=== PATIENT | male | born 1940 | race Caucasian/White ===

== ENCOUNTER 2016-09-25 14:57 | Inpatient (IN) ==
--- NOTE | 2016-09-25 15:57 | Emergency Department Note ---
Disposition Clinical Impression: Atrial fibrillation with rapid ventricular response, Hypokalemia Disposition: Admitted As Inpatient Condition: Fair Referrals: Doc Drake DO [Primary Care Provider] - Forms: ED Satisfaction Letter Time of Disposition: 17:55 Arrhythmia/Palpitations HPI - General Chief Complaint: ED Arrhythmia/Palpitations Stated Complaint: a. fib with RVR from IR Time Seen by Provider: 09/25/16 15:38 Source: patient Mode of arrival: private vehicle Limitations: no limitations Nursing Notes Reviewed: Yes Vital Signs Reviewed: Yes - History of Present Illness HPI Narrative: Patient was sent over from interventional radiology after he had a lung biopsy this afternoon. His heart rate was high and remained high and that concerned his INR staff and so they sent him over here for evaluation. Patient states he is completely asymptomatic with regards to his heart rate. He does not feel his heart racing and he does not feel any new symptoms today. Pt Subjective Complaint: rapid heart beat, atrial fibrillation Onset (ago): week(s) Duration: constant Severity: moderate (Heart rate has been up and down) Arrhythmia History: atrial fibrillation (Patient started having atrial fibrillation back in the beginning of August when he was hospitalized in order to get a lung biopsy), on anti-coagulants (Patient was started on Eliquis in August) Associated symptoms: Reports: denies other symptoms (Patient states he is having no symptoms at all. States he would not have come to the emergency department had a not told him he needed to come.) - Related Data Home Medications Medication Instructions Recorded Confirmed Albuterol Sulfate [Ventolin Hfa] 2 puff IH Q4H PRN 08/27/16 09/25/16 Alendronate Sodium [Fosamax] 70 mg PO AVILEZ 08/27/16 09/25/16 Cholecalciferol (Vitamin D3) 1,000 unit PO DAILY 08/27/16 09/25/16 [Vitamin D] Metoprolol Tartrate [Lopressor] 100 mg PO BID 08/27/16 09/14/16 Apixaban [Eliquis] 5 mg PO BID 09/14/16 09/25/16 Diltiazem HCl [Cardizem] 60 mg PO Q6H 09/14/16 09/25/16 Furosemide [Lasix] 40 mg PO DAILY 09/14/16 09/25/16 Albuterol Neb [Proventil Neb] 2.5 mg IH 8XD PRN 09/25/16 09/25/16 Losartan/Hydrochlorothiazide 1 each PO DAILY 09/25/16 [Hyzaar 100-25 Tablet] Allergies Allergy/AdvReac Type Severity Reaction Status Date / Time No Known Allergies Allergy Verified 08/27/16 10:25 All systems ED: reviewed and negative except as stated. Constitutional: Denies: fever, chills ENT ED: Denies: ear pain, throat pain, congestion Cardiovascular: Denies: chest pain, palpitations Respiratory: Reports: cough (Patient has cough but is chronic and it is unchanged at all over the past few days.). Denies: dyspnea Gastrointestinal: Denies: abdominal pain, nausea, vomiting Neurological: Denies: headache, weakness Hematological/Lymphatic: Denies: easy bleeding, easy bruising Past Medical History - Past Medical History Attestation: Yes The following information was validated with the patient. Source: patient, old records reviewed, obtained from family, nursing notes reviewed Medical history: Reports: atrial fibrillation, COPD, hypertension Surgical history: Reports: other (Patient had a lung biopsy) Psychiatric history: Reports: no psych history - Social History Smoking Status: Never smoker Smokeless Tobacco Status: No Alcohol use: Reports: none Drug use: Reports: none Physical Exam - General Limitations: no limitations General appearance: alert, in no apparent distress - Head Head exam: atraumatic, normocephalic - Eye Eye exam: Present: normal appearance, PERRL - ENT ENT exam: normal exam, normal oropharynx, mucous membranes moist, normal external ear exam - Neck Neck exam: Present: normal inspection, full ROM, trachea midline. Absent: thyromegaly - Chest Chest inspection: Present: normal inspection, symmetric chest wall rise. Absent : tenderness - Respiratory Respiratory exam: Present: normal lung sounds bilaterally. Absent: respiratory distress - Cardiovascular Cardiovascular exam: Present: tachycardia, irregular rhythm - Abdominal Exam Abdominal exam: Present: soft, Non-Tender - Extremities Exam Extremities exam: Present: normal inspection. Absent: pedal edema - Neurological Exam Neurological exam: Present: alert, oriented X3 - Psychiatric Psychiatric exam: Present: normal affect, normal mood - Skin Skin exam: Present: warm, dry. Absent: rash Course Course Narrative: Patient presents with atrial fibrillation with rapid ventricular response. He is asymptomatic. This is a problem going on now for several weeks. He is taking Cardizem at home. Physical exam is unremarkable for complications of atrial fibrillation. His heart rate goes anywhere from 90s to 130s. I am going to give him IV dose of Cardizem. I went to check arrhythmia labs. I will talk with cardiology about outpatient management of this atrial fibrillation rate. - Reevaluation(s) Reevaluation #1: Patient's heart rate did not really come down with Cardizem bolus. In fact once he started eating a meal trays heart rate went up into the 130-140 range. His blood pressure remains okay. He is still asymptomatic. I cannot send him home with that heart rate. I am going to start him on a Cardizem drip and admitted to medicine. Time: 17:56 - Consultations Consultation #1: , hospitalist - I discussed the case with the hospitalist. He is accepting the patient for admission. No further treatment order changes requested. Time: 18:26 Vital Signs Temperature 98.6 F 09/25/16 14:59 Pulse Rate 122 09/25/16 14:59 Respiratory Rate 16 09/25/16 14:59 Blood Pressure 151/77 09/25/16 14:59 O2 Sat by Pulse Oximetry 97 09/25/16 14:59 Temperature 98.6 F 09/25/16 14:59 Pulse Rate 111 09/25/16 18:24 Respiratory Rate 14 09/25/16 18:24 Blood Pressure 136/91 09/25/16 18:24 O2 Sat by Pulse Oximetry 96 09/25/16 18:24 Oxygen Delivery Oxygen Delivery Nasal Cannula Arrhythmia/Palpitations - Medical Records Medical records reviewed: Yes I reviewed the patient's medical records. - Lab Data Lab results reviewed: Yes I reviewed the patient's lab results. Result diagrams: 09/25/16 16:19 09/25/16 16:19 Lab Results 09/25/16 09/25/16 09/25/16 Range/Units 16:19 16:19 16:19 WBC 6.7 (4.3-11.1) K/mcL RBC 3.75 L (4.19-5.50) M/mcL Hgb 9.6 L (12.9-16.9) g/dL Hct 31.4 L (37.5-50.1) % MCV 83.7 (83.0-100.0) fL MCH 25.6 L (28.0-33.3) pg MCHC 30.6 L (31.6-35.5) g/dL RDW 15.1 H (11.5-14.5) % Plt Count 346 (140-400) K/mcL MPV 8.6 L (9.4-12.4) fL Immature Gran % 0.4 (0-4) % Seg Neutrophils % 66.4 % Lymphocytes % 18.5 % Monocytes % 12.0 % Eosinophils % 2.4 % Basophils % 0.3 % Neutrophils # 4.4 (1.6-8.9) K/mcL Lymphocytes # 1.2 (0.6-4.6) K/mcL Monocytes # 0.8 (0.0-1.3) K/mcL Eosinophils # 0.2 (0.0-0.6) K/mcL Basophils # 0.0 (0.0-0.2) K/mcL Immature Plt Fraction 2.0 (1.1-6.1) % PT 12.2 H (9.4-12.1) Seconds INR 1.1 APTT 29.2 (26.0-36.0) Seconds Sodium 138 (136-145) mEq/L Potassium 3.1 L (3.5-4.5) mEq/L Chloride 96 L (98-109) mEq/L Carbon Dioxide 33 H (19-29) mEq/L BUN 14 (8-26) mg/dL Creatinine 0.94 (0.72-1.25) mg/dL Est GFR ( Amer) > 60 (> 60) Est GFR (Non-Af Amer) > 60 (> 60) BUN/Creatinine Ratio 15 (6-26) Glucose 94 (70-99) mg/dL Calculated Osmolality 286 (280-300) Calcium 8.8 (8.6-10.8) mg/dL Troponin I (0-0.03) ng/mL TSH 0.327 L (0.350-4.840) mcIU/mL 09/25/16 Range/Units 16:19 WBC (4.3-11.1) K/mcL RBC (4.19-5.50) M/mcL Hgb (12.9-16.9) g/dL Hct (37.5-50.1) % MCV (83.0-100.0) fL MCH (28.0-33.3) pg MCHC (31.6-35.5) g/dL RDW (11.5-14.5) % Plt Count (140-400) K/mcL MPV (9.4-12.4) fL Immature Gran % (0-4) % Seg Neutrophils % % Lymphocytes % % Monocytes % % Eosinophils % % Basophils % % Neutrophils # (1.6-8.9) K/mcL Lymphocytes # (0.6-4.6) K/mcL Monocytes # (0.0-1.3) K/mcL Eosinophils # (0.0-0.6) K/mcL Basophils # (0.0-0.2) K/mcL Immature Plt Fraction (1.1-6.1) % PT (9.4-12.1) Seconds INR APTT (26.0-36.0) Seconds Sodium (136-145) mEq/L Potassium (3.5-4.5) mEq/L Chloride (98-109) mEq/L Carbon Dioxide (19-29) mEq/L BUN (8-26) mg/dL Creatinine (0.72-1.25) mg/dL Est GFR ( Amer) (> 60) Est GFR (Non-Af Amer) (> 60) BUN/Creatinine Ratio (6-26) Glucose (70-99) mg/dL Calculated Osmolality (280-300) Calcium (8.6-10.8) mg/dL Troponin I 0.00 (0-0.03) ng/mL TSH (0.350-4.840) mcIU/mL - Radiology Data Radiology results reviewed: Yes I reviewed the patient's radiology results. - EKG Data EKG attestation: Yes I reviewed and interpreted this EKG. EKG shows normal: axis, intervals, QRS complexes, ST-T waves Rate: tachycardia Rhythm: A.Fib Interpretation: other (Atrial fibrillation with rapid ventricular response. No indication of ischemic changes.)
[2016-09-25 16:26] LABS: Basophils % 0.3 %; Eosinophils # 0.2 K/mcL (0.0-0.6); Eosinophils % 2.4 %; Hematocrit 31.4 % (37.5-50.1); Hemoglobin 9.6 g/dL (12.9-16.9); Immature Granulocytes % 0.4 % (0-4); Lymphocytes # 1.2 K/mcL (0.6-4.6); Lymphocytes % 18.5 %; Mean Corpuscular HGB Conc 30.6 g/dL (31.6-35.5); Mean Corpuscular Hemoglobin 25.6 pg (28.0-33.3); Mean Corpuscular Volume 83.7 fL (83.0-100.0); Mean Platelet Volume 8.6 fL (9.4-12.4); Monocytes # 0.8 K/mcL (0.0-1.3); Neutrophils # 4.4 K/mcL (1.6-8.9); Platelet Count 346 K/mcL (140-400); Red Blood Count 3.75 M/mcL (4.19-5.50); Red Cell Distribution Width 15.1 % (11.5-14.5); Segmented Neutrophils % 66.4 %
[2016-09-25 16:33] LABS: INR 1.1; Prothrombin Time 12.2 Seconds (9.4-12.1)
[2016-09-25 16:35] LABS: Activated Partial Thrombo Time 29.2 Seconds (26.0-36.0)
[2016-09-25 16:37] LABS: BUN/Creatinine Ratio 15 (6-26); Blood Urea Nitrogen 14 mg/dL (8-26); Calcium 8.8 mg/dL (8.6-10.8); Carbon Dioxide 33 mEq/L (19-29); Chloride 96 mEq/L (98-109); Glucose 94 mg/dL (70-99); Osmolality,Calculated 286 (280-300); Potassium 3.1 mEq/L (3.5-4.5); Sodium 138 mEq/L (136-145); eGFR For African Americans > 60 (> 60); eGFR For Non-African Americans > 60 (> 60)
[2016-09-25 17:04] LABS: Thyroid Stimulating Hormone 0.327 mcIU/mL (0.350-4.840)
[2016-09-25] MEDS ORDERED: Potassium Chloride Elixir 20 MEQ/15 ML UDC PO ONE (17:53)
--- NOTE | 2016-09-25 19:23 | Internal Med History&Physical ---
Date of Encounter: 09/25/16 Time of Encounter: 19:20 Assessment and Plan (1) Atrial fibrillation with rapid ventricular response Current visit: Yes Status: Acute Patient admitted with atrial fibrillation with rapid ventricular response in the setting of a patient with known history of A. fib who recently underwent a lung biopsy. We will continue with Cardizem drip. The patient's daughter states that the patient used to be on beta blockers, however it was switched to Cardizem in light of hypotension and concomitant use of 80 mg daily of Lasix. Telemetry monitoring. Will follow cardiac biomarkers. Hold anticoagulation in light of recent lung biopsy. Monitor hemoglobin due to recent lung biopsy. DVT prophylaxis with EPCD. Continue with oxygen therapy. Nebulizer therapy for his COPD. Hypokalemia likely induced by the use of Lasix, will hold Lasix for now. Monitor potassium levels and magnesium tomorrow in a.m. Avoid nephrotoxic agents. Consider evaluation by cardiology for further adjustment of Cardizem dose. (2) Lung mass Current visit: Yes Status: Acute (3) Hypokalemia Current visit: Yes Status: Acute (4) COPD (chronic obstructive pulmonary disease) Current visit: Yes Status: Acute Qualifiers: COPD type: unspecified COPD Qualified Code(s): J44.9 - Chronic obstructive pulmonary disease, unspecified Internal Medicine - H&P: HPI Chief complaint: Palpitations Admitted From: Emergency Dept Plans for Post Hospital Care: Home History of present illness: Mr. Gonzales is a 76 year old male with past medical history of lung cancer under evaluation (he had had an initial biopsy at [place] a few days ago, which results were uncontrolled, he knows he has a malignancy and is under evaluation in [facility] SINGH. HOWEVER HE HAS not started THERAPY YET), atrial fibrillation on anticoagulation with eliquis (recently diagnosed also after lung biopsy), hypertension, former smoker and COPD, user of long-term oxygen therapy. The patient presented to our emergency department today after he underwent a second lung biopsy, for further evaluation of his lung mass. After the lung biopsy the patient developed atrial fibrillation with rapid ventricular response, his heart rate went up to 145 minutes. Initially he did receive a dose of IV Cardizem, however he did not improve. Therefore, he was not started on Cardizem drip. During my encounter with the patient he denies chest pain, shortness of breath, fever, chills. Initial workup revealed a hemoglobin of 9.6, potassium 3.1, platelet count 346,000. Upon my encounter with the patient his heart rate was 104, he was not in any distress. The patient was admitted for further management and workup. Past Med Surg Social Fam HX - Past Medical History Medical history: atrial fibrillation, COPD, hypertension Psychiatric history: no psych history - Past Surgical History Surgical History: other (Patient had a lung biopsy) - Social History Smoking Status: Never smoker Smokeless Tobacco Status: No Alcohol use: none Drug use: none Internal Medicine - H&P: Meds Albuterol Sulfate [Ventolin Hfa] 2 puff IH Q4H PRN 08/27/16 [History] Alendronate Sodium [Fosamax] 70 mg PO AVILEZ 08/27/16 [History] Cholecalciferol (Vitamin D3) [Vitamin D] 1,000 unit PO DAILY 08/27/16 [History] Metoprolol Tartrate [Lopressor] 100 mg PO BID 08/27/16 [History] Apixaban [Eliquis] 5 mg PO BID 09/14/16 [History] Diltiazem HCl [Cardizem] 60 mg PO Q6H 09/14/16 [History] Furosemide [Lasix] 40 mg PO DAILY 09/14/16 [History] Albuterol Neb [Proventil Neb] 2.5 mg IH 8XD PRN 09/25/16 [History] Losartan/Hydrochlorothiazide [Hyzaar 100-25 Tablet] 1 each PO DAILY 09/25/16 [ History] Allergies No Known Allergies Allergy (Verified 08/27/16 10:25) All Systems PM: A 10-system review of systems was performed and is negative for pertinent findings except as documented above in the HPI. - Constitutional Constitutional: as per HPI, no chills, no fever(s), no night sweats - EENT Eyes: as per HPI, no change in vision, no discharge, no pain, no photophobia Ears: as per HPI, no ear discharge, no ear pain, no tinnitus Nose, mouth and throat: as per HPI, no dysphagia, no nasal discharge, no neck pain, no sore throat - Breasts Breasts: as per HPI - Cardiovascular Cardiovascular ROS IM: as per HPI, no chest pain, no diaphoresis, no dyspnea, no lightheadedness, no palpitations, no syncope - Respiratory Respiratory: as per HPI, no cough, no dyspnea, no wheezing, no excessive phlegm production - Gastrointestinal Gastrointestinal: as per HPI, no abdominal pain, no diarrhea, no hematemesis, no hematochezia, no melena, no nausea, no vomiting - Genitourinary Genitourinary ROS male: as per HPI - Musculoskeletal Musculoskeletal ROS IM: as per HPI, no numbness, no tingling - Integumentary Integumentary IM: as per HPI, no rash, no unusual bruising - Neurological Neurological ROS: as per HPI, no confusion, no convulsions, no focal weakness, no numbness, no tingling, no tremor(s) - Psychiatric Psychiatric: as per HPI - Endocrine Endocrine IM: as per HPI - Hematologic/Lymphatic Hematologic/Lymphatic: as per HPI, no easy bruising - Allergic/Immunologic Allergic/Immunologic: as per HPI - Constitutional Vitals: Temp Pulse Resp BP Pulse Ox 98.6 F 111 14 136/91 96 09/25/16 14:59 09/25/16 18:24 09/25/16 18:24 09/25/16 18:24 09/25/16 18:24 General appearance: Present: cooperative, mild distress, A&O X 3, pleasant - Head Head exam: Present: atraumatic, normocephalic - Eye Eye exam: Present: PERRL, conjuntiva pink, sclera anicteric Pupils: Present: PERRL - Neck Neck exam general surgery: Present: supple, trachea midline. Absent: lymphadenopathy - Respiratory Respiratory exam: Present: decreased breath sounds, wheezes. Absent: accessory muscle use, rales, rhonchi - Cardiovascular Cardiovascular exam: Present: RRR, +S1, +S2. Absent: diastolic murmur, gallop, rubs, systolic murmur - GI/Abdominal GI/Abdominal exam: Present: normal bowel sounds, soft, no peritoneal signs. Absent: distended, tenderness - Extremities Exam Extremities exam: Present: warm, radial pulses palpable and symetrical. Absent : calf tenderness, cyanotic, pedal edema - Neurological Exam Neurological exam: Present: CN II-XII intact, oriented X3, no focal deficits. Absent: pronater drift, facial droop, speech deficit - Skin Skin exam: Present: dry, intact Internal Med - H&P Results - Labs CBC & Chem 7: 09/25/16 16:19 09/25/16 16:19
[2016-09-25] MEDS ORDERED: *HR* Morphine 2 MG/ML SYRINGE IVP PRN (19:29)
[2016-09-25] MEDS ORDERED: MOM Conc 10 ML UD.LIQ PO PRN (19:29)
[2016-09-25] MEDS ORDERED: Acetaminophen 325 MG TABLET PO PRN (19:29)
[2016-09-25] MEDS ORDERED: *HR* HYDROcodone/Acet 5/325 mg TABLET PO PRN (19:29)
[2016-09-25] MEDS ORDERED: Naloxone 0.4 MG/ML INJ IVP PRN (19:29)
[2016-09-26 05:51] LABS: Basophils % 0.2 %; Eosinophils # 0.2 K/mcL (0.0-0.6); Eosinophils % 2.6 %; Hematocrit 31.3 % (37.5-50.1); Hemoglobin 9.4 g/dL (12.9-16.9); Immature Granulocytes % 0.5 % (0-4); Lymphocytes # 1.3 K/mcL (0.6-4.6); Lymphocytes % 21.5 %; Mean Corpuscular Hemoglobin 25.1 pg (28.0-33.3); Mean Corpuscular Volume 83.7 fL (83.0-100.0); Mean Platelet Volume 9.1 fL (9.4-12.4); Monocytes # 0.6 K/mcL (0.0-1.3); Monocytes % 9.4 %; Platelet Count 304 K/mcL (140-400); Red Blood Count 3.74 M/mcL (4.19-5.50); Red Cell Distribution Width 15.3 % (11.5-14.5); Segmented Neutrophils % 65.8 %
[2016-09-26 05:57] LABS: INR 1.1; Prothrombin Time 12.3 Seconds (9.4-12.1)
[2016-09-26 06:04] LABS: BUN/Creatinine Ratio 15 (6-26); Blood Urea Nitrogen 13 mg/dL (8-26); Calcium 8.6 mg/dL (8.6-10.8); Carbon Dioxide 30 mEq/L (19-29); Chloride 100 mEq/L (98-109); Glucose 101 mg/dL (70-99); Magnesium 1.4 mg/dL (1.6-2.6); Osmolality,Calculated 290 (280-300); Potassium 3.3 mEq/L (3.5-4.5); Sodium 140 mEq/L (136-145); eGFR For African Americans > 60 (> 60); eGFR For Non-African Americans > 60 (> 60)
[2016-09-26] MEDS: Famotidine 20 MG/2 ML VIAL IVP SCH ×2 (06:05→18:41)
[2016-09-26] MEDS ORDERED: Magnesium Sulfate 2 GM in D5% in Water 100 ML IVPB ONE (09:32)
[2016-09-26] MEDS ORDERED: Potassium Chloride Elixir 20 MEQ/15 ML UDC PO ONE (09:32)
--- NOTE | 2016-09-26 15:23 | Electrocardiograph Report ---
[place] [id number] Test Date: 2016-09-25 Pat Name: Nita Gonzales Department: 104 Room: [facility] Gender: M Rib Sawyer: : 1940 Requested By: oYshi Dey Order Number: [id number] Reading MD: Libertad Wray Measurements Intervals [place] Rate: 105 P: NH: 0 QRS: 24 QRSD: 98 T: 43 QT: 332 QTc: 393 Interpretive Statements ATRIAL FIBRILLATION WITH RAPID VENTRICULAR RESPONSE ABNORMAL RHYTHM ECG Electronically Signed On 09-26-2016 15:21:59 EST by Libertad Wray
--- NOTE | 2016-09-26 17:54 | Internal Med Progress Note ---
<Lex Harper - Last Filed: 09/26/16 17:39> Date of Encounter: 09/26/16 Time of Encounter: 09:25 - Assessment and plan (1) Atrial fibrillation with rapid ventricular response Current Visit: Yes Status: Acute Assessment and plan: patient currently above goal on rate. Will increase cardizem and plan to hopefully transition to PO tomorrow. CHADSVASC2 score of 2 (age HTN) HASBLED=1 Currenty anticoagulation is being held due to recent lung biopsy. Will plan to resume in AM if patient agreeable. (2) COPD (chronic obstructive pulmonary disease) Current Visit: Yes Status: Acute Assessment and plan: stable PRN Xopenex. No long acting medications on Home med list. May consider adding symbicort at discharge. Qualifiers: COPD type: unspecified COPD Qualified Code(s): J44.9 - Chronic obstructive pulmonary disease, unspecified (3) Hypokalemia Current Visit: Yes Status: Acute Assessment and plan: replete (4) Lung mass Current Visit: Yes Status: Acute Assessment and plan: s/p lung biopsy. F/U with results with Oncology. (5) DVT prophylaxis Current Visit: Yes Status: Acute Assessment and plan: EPCDs Will plan on resuming elloquis tomorrow if patient agreeable and Hg remains stable. (6) Anemia Current Visit: Yes Status: Acute Assessment and plan: stable normocytic elevated RDW will check hematinics. - Subjective Interval history: No major events overnight. Currently the patients heart rate is above goal ( 120s). He denies any chest pain, dyspnea, syncope or presyncope. He denies any increased shortness of breath. He has no further complaints at this time. - Constitutional Vitals: Temp Pulse Resp BP Pulse Ox 98 F 96 16 111/82 98 09/26/16 16:34 09/26/16 16:34 09/26/16 16:34 09/26/16 16:34 09/26/16 16:34 General appearance: Present: cooperative, mild distress, A&O X 3, pleasant - Head Head exam: Present: atraumatic, normocephalic - Eye Eye exam: Present: PERRL, conjuntiva pink, sclera anicteric Pupils: Present: PERRL - Neck Neck exam general surgery: Present: supple, trachea midline. Absent: lymphadenopathy - Respiratory Respiratory exam: Present: CTAB. Absent: accessory muscle use, rales, rhonchi, wheezes - Cardiovascular Cardiovascular exam: Present: irregular rhythm, +S1, +S2, tachycardia. Absent: diastolic murmur, gallop, rubs, systolic murmur - GI/Abdominal GI/Abdominal exam: Present: normal bowel sounds, soft, no peritoneal signs. Absent: distended, tenderness - Extremities Exam Extremities exam: Present: warm, radial pulses palpable and symetrical. Absent : calf tenderness, cyanotic, pedal edema - Skin Skin exam: Present: dry, intact Internal Medicine: Result - Labs CBC & Chem 7: 09/26/16 05:16 09/26/16 05:16 Labs: Short CBC 09/26/16 Range/Units 05:16 WBC 6.1 (4.3-11.1) K/mcL Hgb 9.4 L (12.9-16.9) g/dL Hct 31.3 L (37.5-50.1) % Plt Count 304 (140-400) K/mcL Neutrophils # 4.0 (1.6-8.9) K/mcL BMP 09/26/16 05:16 Sodium 140 Potassium 3.3 L Chloride 100 Carbon Dioxide 30 H BUN 13 Creatinine 0.86 Glucose 101 H Calcium 8.6 Cardiac Enzymes 09/25/16 09/26/16 Range/Units 22:38 05:16 Troponin I 0.00 0.00 (0-0.03) ng/mL - ABG Interpretation ABG results: PT/INR, D-dimer PT 12.3 Seconds (9.4-12.1) H 09/26/16 05:16 Consult Discharge Plan - Plan Referrals: Doc Drake DO [Primary Care Provider] - <Hari Adam - Last Filed: 09/26/16 18:18> Date of Encounter: 09/26/16 - Constitutional Vitals: Temp Pulse Resp BP Pulse Ox 98 F 96 16 111/82 98 09/26/16 16:34 09/26/16 16:34 09/26/16 16:34 09/26/16 16:34 09/26/16 16:34 Internal Medicine: Result - Labs CBC & Chem 7: 09/26/16 05:16 09/26/16 05:16 Labs: Short CBC 09/26/16 Range/Units 05:16 WBC 6.1 (4.3-11.1) K/mcL Hgb 9.4 L (12.9-16.9) g/dL Hct 31.3 L (37.5-50.1) % Plt Count 304 (140-400) K/mcL Neutrophils # 4.0 (1.6-8.9) K/mcL BMP 09/26/16 05:16 Sodium 140 Potassium 3.3 L Chloride 100 Carbon Dioxide 30 H BUN 13 Creatinine 0.86 Glucose 101 H Calcium 8.6 Cardiac Enzymes 09/25/16 09/26/16 Range/Units 22:38 05:16 Troponin I 0.00 0.00 (0-0.03) ng/mL - ABG Interpretation ABG results: PT/INR, D-dimer PT 12.3 Seconds (9.4-12.1) H 09/26/16 05:16 - Attending Attestation I examined this patient and my medical decision-making was reviewed with the MOLD WORKER/PA/Advanced Practice Nurse/Resident Physician. I agree with the documented findings, disposition and treatment plan as described except to the extent set forth below.
[2016-09-26] MEDS ORDERED: Levalbuterol Neb 1.25 MG/3 ML IH PRN (17:57)
[2016-09-27 04:59] LABS: Basophils % 0.2 %; Eosinophils # 0.2 K/mcL (0.0-0.6); Eosinophils % 2.8 %; Hematocrit 31.1 % (37.5-50.1); Hemoglobin 9.3 g/dL (12.9-16.9); Immature Granulocytes % 0.3 % (0-4); Lymphocytes # 1.5 K/mcL (0.6-4.6); Lymphocytes % 22.7 %; Mean Corpuscular HGB Conc 29.9 g/dL (31.6-35.5); Mean Corpuscular Hemoglobin 25.1 pg (28.0-33.3); Mean Corpuscular Volume 84.1 fL (83.0-100.0); Monocytes # 0.7 K/mcL (0.0-1.3); Monocytes % 10.6 %; Neutrophils # 4.1 K/mcL (1.6-8.9); Platelet Count 321 K/mcL (140-400); Red Cell Distribution Width 15.3 % (11.5-14.5); Segmented Neutrophils % 63.4 %
[2016-09-27 05:11] LABS: % Iron Saturation 6 % (20-55); BUN/Creatinine Ratio 11 (6-26); Blood Urea Nitrogen 10 mg/dL (8-26); Calcium 8.4 mg/dL (8.6-10.8); Carbon Dioxide 30 mEq/L (19-29); Chloride 102 mEq/L (98-109); Glucose 99 mg/dL (70-99); Iron 21 mcg/dL (65-175); Osmolality,Calculated 289 (280-300); Potassium 3.5 mEq/L (3.5-4.5); Sodium 140 mEq/L (136-145); Transferrin 245 mg/dL (174-364); eGFR For African Americans > 60 (> 60); eGFR For Non-African Americans > 60 (> 60)
[2016-09-27 05:33] LABS: Ferritin 74 ng/ml (22-275)
[2016-09-27] MEDS: Famotidine 20 MG/2 ML VIAL IVP SCH ×2 (05:38→16:45)
[2016-09-27 05:47] LABS: Folate 7.6 ng/mL (7.0-31.4)
[2016-09-27] MEDS: Diltiazem CD (24hr) 240 MG CAPSULE PO SCH (12:53)
--- NOTE | 2016-09-27 13:49 | Internal Med Progress Note ---
<Lex Harper - Last Filed: 09/27/16 13:36> Date of Encounter: 09/27/16 Time of Encounter: 13:36 - Assessment and plan (1) Atrial fibrillation with rapid ventricular response Current Visit: Yes Status: Acute Assessment and plan: patient currently above goal on rate. Will increase cardizem and plan to hopefully transition to PO tomorrow. CHADSVASC2 score of 2 (age HTN) HASBLED=1 will plan to transition to PO cardizem for rate control. 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 (2) COPD (chronic obstructive pulmonary disease) Current Visit: Yes Status: Acute Assessment and plan: stable PRN Xopenex. No long acting medications on Home med list. May consider adding symbicort at discharge. Qualifiers: COPD type: unspecified COPD Qualified Code(s): J44.9 - Chronic obstructive pulmonary disease, unspecified (3) Hypokalemia Current Visit: Yes Status: Acute Assessment and plan: resolved (4) Lung mass Current Visit: Yes Status: Acute Assessment and plan: s/p lung biopsy. F/U with results with Oncology. (5) DVT prophylaxis Current Visit: Yes Status: Acute Assessment and plan: EPCDs Will plan on resuming elloquis tomorrow if patient agreeable and Hg remains stable. (6) Anemia Current Visit: Yes Status: Acute Assessment and plan: stable normocytic elevated RDW iron profile would suggest iron deficiency. Will ad PO iron. Should have colonoscopy as outpatient May consider holding off on eliquis until after evaluation. I will discuss with my attending. - Subjective Interval history: patient did have another episode of RVR over night. This resolved with titration of cardizem drip up. this Am he denies any chest pain or discomfort. He denies any syncope or presyncope. He denies any new complaints or concerns at this time. - Constitutional Vitals: Temp Pulse Resp BP Pulse Ox 98.3 F 109 16 142/87 96 09/27/16 12:27 09/27/16 12:27 09/27/16 12:27 09/27/16 12:27 09/27/16 12:27 General appearance: Present: cooperative, mild distress, A&O X 3, pleasant Exam: hard of hearing - Head Head exam: Present: atraumatic, normocephalic - Eye Eye exam: Present: PERRL, conjuntiva pink, sclera anicteric Pupils: Present: PERRL - Neck Neck exam general surgery: Present: supple, trachea midline. Absent: lymphadenopathy - Respiratory Respiratory exam: Present: CTAB. Absent: accessory muscle use, rales, rhonchi, wheezes - Cardiovascular Cardiovascular exam: Present: irregular rhythm, +S1, +S2. Absent: diastolic murmur, gallop, rubs, systolic murmur - GI/Abdominal GI/Abdominal exam: Present: normal bowel sounds, soft, no peritoneal signs. Absent: distended, tenderness - Extremities Exam Extremities exam: Present: warm, radial pulses palpable and symetrical. Absent : calf tenderness, cyanotic, pedal edema - Skin Skin exam: Present: dry, intact Internal Medicine: Result - Labs CBC & Chem 7: 09/27/16 03:56 09/27/16 03:56 Labs: Short CBC 09/27/16 Range/Units 03:56 WBC 6.5 (4.3-11.1) K/mcL Hgb 9.3 L (12.9-16.9) g/dL Hct 31.1 L (37.5-50.1) % Plt Count 321 (140-400) K/mcL Neutrophils # 4.1 (1.6-8.9) K/mcL BMP 09/27/16 03:56 Sodium 140 Potassium 3.5 Chloride 102 Carbon Dioxide 30 H BUN 10 Creatinine 0.95 Glucose 99 Calcium 8.4 L - ABG Interpretation ABG results: PT/INR, D-dimer PT 12.3 Seconds (9.4-12.1) H 09/26/16 05:16 Consult Discharge Plan - Plan Referrals: Doc Drake DO [Primary Care Provider] - <Hari Adam P - Last Filed: 09/27/16 17:03> Date of Encounter: 09/27/16 - Constitutional Vitals: Temp Pulse Resp BP Pulse Ox 99.1 F 96 16 127/90 95 09/27/16 16:04 09/27/16 16:04 09/27/16 16:04 09/27/16 16:04 09/27/16 16:04 Internal Medicine: Result - Labs CBC & Chem 7: 09/27/16 03:56 09/27/16 03:56 Labs: Short CBC 09/27/16 Range/Units 03:56 WBC 6.5 (4.3-11.1) K/mcL Hgb 9.3 L (12.9-16.9) g/dL Hct 31.1 L (37.5-50.1) % Plt Count 321 (140-400) K/mcL Neutrophils # 4.1 (1.6-8.9) K/mcL BMP 09/27/16 03:56 Sodium 140 Potassium 3.5 Chloride 102 Carbon Dioxide 30 H BUN 10 Creatinine 0.95 Glucose 99 Calcium 8.4 L - ABG Interpretation ABG results: PT/INR, D-dimer PT 12.3 Seconds (9.4-12.1) H 09/26/16 05:16 - Attending Attestation I examined this patient and my medical decision-making was reviewed with the LEASE BROKER/PA/Advanced Practice Nurse/Resident Physician. I agree with the documented findings, disposition and treatment plan as described except to the extent set forth below.
[2016-09-27] MEDS: Levalbuterol Neb 1.25 MG/3 ML IH SCH ×3 (14:46→21:56)
[2016-09-28] MEDS: Levalbuterol Neb 1.25 MG/3 ML IH SCH ×3 (03:45→16:32)
[2016-09-28] MEDS: Famotidine 20 MG/2 ML VIAL IVP SCH ×2 (05:16→17:58)
[2016-09-28 05:52] LABS: Basophils % 0.3 %; Eosinophils # 0.2 K/mcL (0.0-0.6); Eosinophils % 2.5 %; Hematocrit 32.4 % (37.5-50.1); Hemoglobin 9.5 g/dL (12.9-16.9); Immature Granulocytes % 0.3 % (0-4); Lymphocytes # 1.4 K/mcL (0.6-4.6); Lymphocytes % 21.6 %; Mean Corpuscular HGB Conc 29.3 g/dL (31.6-35.5); Mean Corpuscular Hemoglobin 24.9 pg (28.0-33.3); Mean Platelet Volume 8.8 fL (9.4-12.4); Monocytes # 0.7 K/mcL (0.0-1.3); Monocytes % 10.6 %; Neutrophils # 4.1 K/mcL (1.6-8.9); Platelet Count 325 K/mcL (140-400); Red Blood Count 3.81 M/mcL (4.19-5.50); Red Cell Distribution Width 15.3 % (11.5-14.5); Segmented Neutrophils % 64.7 %
[2016-09-28 06:09] LABS: BUN/Creatinine Ratio 8 (6-26); Blood Urea Nitrogen 8 mg/dL (8-26); Calcium 8.5 mg/dL (8.6-10.8); Carbon Dioxide 28 mEq/L (19-29); Chloride 103 mEq/L (98-109); Glucose 101 mg/dL (70-99); Osmolality,Calculated 290 (280-300); Potassium 3.6 mEq/L (3.5-4.5); Sodium 141 mEq/L (136-145); eGFR For African Americans > 60 (> 60); eGFR For Non-African Americans > 60 (> 60)
--- NOTE | 2016-09-28 06:49 | Discharge Summary ---
<Lex Harper - Last Filed: 09/28/16 10:11> Date of Encounter: 09/28/16 Time of Encounter: 06:47 - Discharge Diagnosis (1) Atrial fibrillation with rapid ventricular response Priority: Primary Status: Acute (2) COPD (chronic obstructive pulmonary disease) Priority: Secondary Status: Acute Qualifiers: COPD type: unspecified COPD Qualified Code(s): J44.9 - Chronic obstructive pulmonary disease, unspecified (3) Hypokalemia Priority: Secondary Status: Acute (4) Lung mass Priority: Secondary Status: Acute (5) DVT prophylaxis Priority: Secondary Status: Acute (6) Anemia Priority: Secondary Status: Acute - Discharge Medications Home Medications: Alendronate Sodium [Fosamax] 70 mg PO AVILEZ 08/27/16 [History] Cholecalciferol (Vitamin D3) [Vitamin D3] 1,000 unit PO DAILY 08/27/16 [History] Metoprolol Tartrate [Lopressor] 100 mg PO BID 08/27/16 [History] Furosemide [Lasix] 40 mg PO DAILY 09/14/16 [History] Losartan/Hydrochlorothiazide [Hyzaar 100-25 Tablet] 1 each PO DAILY 09/25/16 [ History] Diltiazem CD (24hr) [Cardizem CD] 360 mg PO DAILY cap.er.24h 09/28/16 [Rx] Docusate [Colace] 100 mg PO BID capsule 09/28/16 [Rx] Famotidine [Pepcid] 20 mg IVP Q12HR vial 09/28/16 [Rx] Ferrous Sulfate 325 mg PO BIDWM tablet 09/28/16 [Rx] HYDROcodone/Acet 5/325 mg [[place] 5-325 mg] 1 tab PO Q4HR PRN #0 tablet 09/28/16 [Rx] Levalbuterol Neb [Xopenex Neb] 1.25 mg IH [id number] vial.neb 09/28/16 [Rx] MOM Conc [MILK OF MAGNESIA conc] 10 ml PO DAILY PRN #0 ud.liq 09/28/16 [Rx] Naloxone [Narcan] 0.4 mg IVP Q2MIN PRN #0 inj 09/28/16 [Rx] Allergies/Adverse Reactions: Allergies No Known Allergies Allergy (Verified 08/27/16 10:25) Procedures/tests Complete & Pending: Procedures Performed prior 72 hours Category Date Time Status ECG 12 lead ECG [ECG] Routine Y 09/25/16 14:27 Completed Date of admission: 09/25/16 19:51 Primary care physician: Doc Drake DO Discharging clinician: Hari Adam Anticipated date of discharge: 09/28/16 - Patient Status Disposition: Transfer Critical Access Hosp Condition: Fair Functional capacity at discharge: independent ambulation Overall status at discharge: patient is progressing back to baseline - Discharge Instructions Follow Up With: Doc Drake DO [Primary Care Provider] - - Diet and Activity Activity: as per physical therapy Diet: low fat, low cholesterol, low salt diet Hospital course: Mr. Gonzales is a 76 year old male who was admitted to [facility] for Afib with RVR after he underwent a CT guided lung biopsy. He was treated with a Cardizem drip which was weaned and he was placed back on home cardizem with good rate control. His Apixaban was held for the Biopsy. 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 We discussed with Oncology which recommended transfer to [facility] for possible resection. We discussed with Family who are agreeable. Of notehis Heart rate was above goal this AM so his Cardizem was increased from 240 to 360. His elloqis was being held and we have not resumed as he may have surgery in the near future but this will need to be resumed if Surgery is decided against. We will transfer him to the [facility] today. - Time Spent with Patient Total time spent providing and/or coordinating discharge services: Less than 30 minutes - Constitutional Vitals: Temp Pulse Resp BP Pulse Ox 98.1 F 119 14 126/78 97 09/28/16 04:34 09/28/16 04:34 09/28/16 04:34 09/28/16 04:34 09/28/16 04:34 General appearance: Present: cooperative, mild distress, A&O X 3, pleasant - Head Head exam: Present: atraumatic, normocephalic - Eye Eye exam: Present: PERRL, conjuntiva pink, sclera anicteric Pupils: Present: PERRL - Neck Neck exam general surgery: Present: supple, trachea midline. Absent: lymphadenopathy - Respiratory Respiratory exam: Present: CTAB. Absent: accessory muscle use, rales, rhonchi, wheezes - Cardiovascular Cardiovascular exam: Present: irregular rhythm, +S1, +S2. Absent: diastolic murmur, gallop, rubs, systolic murmur - GI/Abdominal GI/Abdominal exam: Present: normal bowel sounds, soft, no peritoneal signs. Absent: distended, tenderness - Extremities Exam Extremities exam: Present: warm, radial pulses palpable and symetrical. Absent : calf tenderness, cyanotic, pedal edema - Skin Skin exam: Present: dry, intact <Kia,Hari P - Last Filed: 09/28/16 13:03> Date of Encounter: 09/28/16 Procedures/tests Complete & Pending: Procedures Performed prior 72 hours Category Date Time Status ECG 12 lead ECG [ECG] Routine Y 09/25/16 14:27 Completed Date of admission: 09/25/16 19:51 Primary care physician: Doc Drake DO Hospital course: Mr. Gonzales is a 76 year old male - Time Spent with Patient Total time spent providing and/or coordinating discharge services: - Constitutional Vitals: Temp Pulse Resp BP Pulse Ox 98.5 F 116 16 109/80 96 09/28/16 12:30 09/28/16 12:30 09/28/16 12:30 09/28/16 12:30 09/28/16 12:30 - Attending Attestation I examined this patient and my medical decision-making was reviewed with the CONSUMER LOAN SPECIALIST/PA/Advanced Practice Nurse/Resident Physician. I agree with the documented findings, disposition and treatment plan as described except to the extent set forth below. case d/w family. has concern regarding treatment here in [place]. assured for possible treatment. family prefer to go to [facility] in [facility]. all specialities like CTS ( Dr díaz) Oncology ( Dr Spann ) and pathology ( ( Dr Mendenhall) updated they all agree for transfer. plan transfer to [facility].
[2016-09-28] MEDS: Diltiazem CD (24hr) 240 MG CAPSULE PO SCH (08:34)
[2016-09-28] MEDS ORDERED: Furosemide 40 MG TABLET PO SCH (09:00)
[2016-09-28] MEDS ORDERED: Diltiazem CD (24hr) 120 MG CAPSULE PO ONE (10:01)
[2016-09-28] MEDS ORDERED: Glycerin RECTAL Suppository RC PRN (12:47)
[2016-09-28 16:32] VITALS: BP 125/73
[2016-09-29] MEDS ORDERED: Diltiazem CD (24hr) 180 MG CAPSULE PO SCH (09:00)
== END 2016-09-28 20:29 | disposition short-term general hospital (02) | DRG 309 ==
LOC: 2NENU 14:57 → EMEROO 14:57 → 2NENU 20:02
PROVIDERS: ADMIT Internal Medicine; ATTEND Internal Medicine

== ENCOUNTER 2017-01-22 17:44 | Inpatient (IN) ==
[2017-01-22] MEDS ORDERED: Ondansetron 4 MG/2 ML VIAL IVP ONE (20:54)
[2017-01-22] MEDS ORDERED: *HR* Morphine 2 MG/ML SYRINGE IVP ONE (20:54)
[2017-01-22] MEDS ORDERED: 0.9 % Sodium Chloride 1,000 ML IVC SCH (21:00)
--- NOTE | 2017-01-22 21:00 | Emergency Department Note ---
Disposition Clinical Impression: Calculus of kidney, UTI (urinary tract infection) Disposition: Admitted As Inpatient Condition: Good Abdominal Pain HPI - General Chief Complaint: ED Abdominal Pain Stated Complaint: L flank pain Time Seen by Provider: 01/22/17 20:31 Source: patient, family Mode of arrival: ambulatory Limitations: no limitations Nursing Notes Reviewed: Yes Vital Signs Reviewed: Yes - History of Present Illness HPI Narrative: He is a pleasant 77-year-old white male who is brought in by family today with complaints of intermittent left flank pain radiating into the left side of his abdomen pain that has been intermittent and sharp at times again this morning. Patient states he never had pain like this before and it seems to at times radiate down towards the suprapubic area of his abdomen. Patient denies any lightheadedness, no chest pain pressure or heaviness, no palpitations, no shortness of breath, no nausea vomiting, no diaphoresis. Patient has chronic difficulty maintaining urine stream secondary to prostate issues also a history of prostate cancer but no worsening symptoms today with this pain. Patient had no gross hematuria and no increased frequency or urgency. Patient denies any nausea or vomiting associated with the pain no bowel changes, no other associated symptoms. Patient does have a history of atrial fibrillation and is on Eliquis for this. Patient denies any blood in his stool or any concerns for bleeding. She currently rates the pain about an 8 out of 10 in severity and points to his mid left abdomen as to the location currently. Daughter reports that out in the waiting room he was complaining of left flank pain. Pain Scale: 6 - Related Data Home Medications Medication Instructions Recorded Confirmed Albuterol Sulfate [Ventolin Hfa] 18 gm IH QID 12/31/16 01/22/17 Alendronate Sodium [Fosamax] 70 mg PO QWEEK 12/31/16 01/22/17 Apixaban [Eliquis] 5 mg PO BID 12/31/16 01/22/17 Digoxin [Lanoxin] 0.125 mg PO DAILY 12/31/16 01/22/17 Ferrous Sulfate [Iron] 325 mg PO BID 12/31/16 01/22/17 Furosemide [Lasix] 20 mg PO DAILY 12/31/16 01/22/17 Ipratropium Neb [Atrovent Neb] 0.5 mg IH Q6HR PRN 12/31/16 01/22/17 Metoprolol [Lopressor] 12.5 mg PO BID 12/31/16 01/22/17 Potassium Chloride [Klor-Con 10 meq PO DAILY 12/31/16 01/22/17 Sprinkle] Tamsulosin HCl [Flomax] 0.4 mg PO DAILY 12/31/16 01/22/17 Tramadol HCl [Ultram] 50 - 100 mg PO QID PRN 12/31/16 01/22/17 dilTIAZem HCl [Cardizem] 90 mg PO QID 12/31/16 01/22/17 Acetaminophen [Tylenol] 650 mg PO Q6H PRN 01/22/17 01/22/17 Cholecalciferol (D-3) [Vitamin D] 5,000 unit PO DAILY 01/22/17 01/22/17 Cyanocobalamin (B-12) [Vitamin B12] 1,000 mcg IM Q2W 01/22/17 01/22/17 Docusate Sodium [Dok] 100 mg PO BID PRN 01/22/17 01/22/17 Melatonin [Melatin] 3 mg PO HS 01/22/17 01/22/17 Sennosides [Senna] 17.2 mg PO BID 01/22/17 01/22/17 Previous Rx's Medication Instructions Recorded HYDROcodone/Acet 5/325 mg [[place] 1 tab PO Q6H PRN #10 tab 01/22/17 5-325 mg] Ondansetron ODT [Zofran ODT] 4 mg SL Q8HR #10 tab.rapdis 01/22/17 Allergies Allergy/AdvReac Type Severity Reaction Status Date / Time No Known Allergies Allergy Verified 08/27/16 10:25 All systems ED: reviewed and negative except as stated. Constitutional: Denies: fever, chills Eyes: Reports: as per HPI ENT ED: Reports: as per HPI Cardiovascular: Reports: as per HPI. Denies: chest pain, palpitations, dyspnea on exertion, syncope Respiratory: Reports: as per HPI. Denies: cough, dyspnea, sputum production Gastrointestinal: Reports: as per HPI, abdominal pain. Denies: nausea, vomiting , diarrhea, hematemesis, melena, hematochezia Genitourinary: Reports: as per HPI. Denies: urgency, dysuria, frequency, hematuria Musculoskeletal: Reports: as per HPI. Denies: back pain Integumentary: Reports: as per HPI. Denies: rash Neurological: Reports: as per HPI. Denies: headache, weakness, numbness Psychiatric: Reports: as per HPI Endocrine: Reports: as per HPI Hematological/Lymphatic: Reports: as per HPI. Denies: easy bleeding, easy bruising Allergic/Immunologic: Reports: as per HPI Abdominal Pain PMH - Past Medical History Medical history: Reports: arthritis, atrial fibrillation, cancer, COPD, hyperlipidemia, hypertension, renal disease Male Surgical History: Reports: other Psychiatric history: Reports: no psych history - Social History Smoking status: Former smoker Alcohol use: Reports: none Drug use: Reports: none Physical Exam - General Limitations: no limitations General appearance: alert, in no apparent distress - Head Head exam: atraumatic, normocephalic, normal inspection - Eye Eye exam: Present: normal appearance, PERRL, EOMI - ENT ENT exam: normal exam, normal oropharynx, mucous membranes moist - Neck Neck exam: Present: normal inspection, full ROM - Chest Chest inspection: Present: normal inspection, symmetric chest wall rise. Absent : tenderness - Respiratory Respiratory exam: Present: normal lung sounds bilaterally. Absent: respiratory distress, wheezes - Cardiovascular Cardiovascular exam: Present: regular rate, irregular rhythm, normal heart sounds - Abdominal Exam Abdominal exam: Present: soft, tenderness, normal bowel sounds, other (No pulsatile mass appreciated in the abdomen.). Absent: Non-Tender, distention, guarding, rebound, rigidity - Rectal Exam Rectal exam: Present: deferred - Extremities Exam Extremities exam: Present: normal inspection, full ROM, normal capillary refill , other (Good distal pulses +2 out of 4 equal bilaterally in the dorsalis pedis and posterior tibial). Absent: tenderness, pedal edema - Back Exam Back exam: Present: normal inspection, CVA tenderness (L). Absent: CVA tenderness (R), paraspinal tenderness, vertebral tenderness - Neurological Exam Neurological exam: Present: alert, oriented X3, CN II-XII intact, reflexes normal. Absent: motor sensory deficit - Psychiatric Psychiatric exam: Present: normal affect, normal mood Course Course Narrative: Patient is a 77-year-old elderly white male who presents to the emergency Department with onset of left flank pain radiating around to the left midabdomen that started this morning. Pain is been an 8 out of 10 in severity, intermittent, colicky in nature and sharp when the patient experiences pain. Patient states he feels like it has migrated and now feels occasional pains in his suprapubic area. Suspicious of possible renal colic from a kidney stone, patient has no prior history of kidney stones. We will obtain labs collect a urinalysis and obtain imaging. He is hemodynamically stable at this time we will administer fluids pain meds and antiemetics and reevaluate. Patient has good neurovascular status in the lower extremities he has no pulsatile mass in the abdomen at this time I am not concerned about any emergent aortic issues. - Reevaluation(s) Reevaluation #1: On reevaluation patient's resting comfortably feeling much better with significant pain relief following IV medication administration. I discussed the results of the patient's labs and CT findings showing a 7 mm distal ureter stone. I also discussed with them the new adrenal changes that were concerning for metastatic disease. Daughter at bedside states they are scheduled to see the cancer center here at [place] on Sunday of next week for follow-up as they are transitioning from [facility] and he is soon to start chemotherapy locally. 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 I will have them take a disc with them to their appointment of their CT scan today so that their doctors are aware of these adrenal changes. Patient is feeling much better and will plan to discharge him home we are just awaiting a urinalysis at this time. Time: 22:03 Reevaluation #2: Analysis shows a UTI, spoke with patient and daughter and they state that this is the third urinary tract infection he has had since the end of November. I pulled up his culture sensitivity results from December and it is sensitive to Rocephin so I started the IV. Considering that pain control that is required, and [place] currents urinary tract infection with 7 mm stone I will bring the patient in for admission and continued IV antibiotics and pain control. Page the hospitalist and awaiting callback. Time: 22:29 Vital Signs Temperature 98.5 F 01/22/17 18:19 Pulse Rate 107 01/22/17 18:19 Respiratory Rate 18 01/22/17 18:19 Blood Pressure 154/89 01/22/17 18:19 O2 Sat by Pulse Oximetry 100 01/22/17 18:19 Temperature 98.5 F 01/22/17 18:19 Pulse Rate 79 01/22/17 22:43 Respiratory Rate 18 01/22/17 22:43 Blood Pressure 135/89 01/22/17 22:43 O2 Sat by Pulse Oximetry 98 01/22/17 22:43 Oxygen Delivery Oxygen Delivery Nasal Cannula Abdominal Pain - MDM Narrative Medical decision making narrative: Past with hospitalist who accepted the patient for admission to the medicine service. Also consult Dr. Torres who is on for urology and spoke with him at 2235 who agreed to consult on the patient. Orders been placed in chart. Patient's been started on IV Rocephin. He is hemodynamically stable, afebrile, with a normal lactate. Patient and daughter understand plan of care and patient will be admitted. - Lab Data Result diagrams: 01/22/17 21:07 01/22/17 21:07 Lab Results 01/22/17 01/22/17 01/22/17 Range/Units 21:07 21:07 21:07 WBC 11.9 H (4.3-11.1) K/mcL RBC 4.71 (4.19-5.50) M/mcL Hgb 11.2 L (12.9-16.9) g/dL Hct 37.6 (37.5-50.1) % MCV 79.8 L (83.0-100.0) fL MCH 23.8 L (28.0-33.3) pg MCHC 29.8 L (31.6-35.5) g/dL RDW 20.3 H (11.5-14.5) % Plt Count 281 (140-400) K/mcL MPV 8.8 L (9.4-12.4) fL Immature Gran % 0.3 (0-4) % Seg Neutrophils % 81.7 % Lymphocytes % 8.2 % Monocytes % 9.4 % Eosinophils % 0.4 % Basophils % 0.0 % Neutrophils # 9.7 H (1.6-8.9) K/mcL Lymphocytes # 1.0 (0.6-4.6) K/mcL Monocytes # 1.1 (0.0-1.3) K/mcL Eosinophils # 0.1 (0.0-0.6) K/mcL Basophils # 0.0 (0.0-0.2) K/mcL Sodium 136 (136-145) mEq/L Potassium 4.3 (3.5-4.5) mEq/L Chloride 96 L (98-109) mEq/L Carbon Dioxide 33 H (19-29) mEq/L BUN 15 (8-26) mg/dL Creatinine 0.99 (0.72-1.25) mg/dL Est GFR ( Amer) > 60 (> 60) Est GFR (Non-Af Amer) > 60 (> 60) BUN/Creatinine Ratio 15 (6-26) Glucose 113 H (70-99) mg/dL Calculated Osmolality 284 (280-300) Lactic Acid 1.3 (0.5-2.2) mmol/L Calcium 9.9 (8.6-10.8) mg/dL Total Bilirubin 0.5 (0.2-1.2) mg/dL Direct Bilirubin 0.2 (0.0-0.5) mg/dL Indirect Bilirubin 0.3 (0.0-1.2) mg/dL AST 12 (5-34) Units/L ALT 8 (0-55) Units/L Alkaline Phosphatase 98 (38-126) Units/L Serum Total Protein 7.5 (6.0-8.3) g/dL Albumin 3.4 L (3.5-5.0) g/dL Globulin 4.1 H (2.4-3.5) g/dL Albumin/Globulin Ratio 0.8 L (1.1-2.2) Lipase 26 (8-78) Units/L Urine Color (Yellow) Urine Clarity (Clear) Urine pH (5.0-8.0) pH Units Ur Specific [place] (1.010-1.025) Urine Protein (Neg-Trace) mg/dL Urine Glucose (UA) (Normal) mg/dL Urine Ketones (Negative) mg/dL Urine Blood (Negative) Urine Nitrite (Negative) Urine Bilirubin (Negative) Urine Urobilinogen (Normal) mg/dL Ur Leukocyte Esterase (Negative) Urine Microscopic RBC (0-3) per hpf Urine Microscopic WBC (0-3) per hpf Ur Squamous Epith Cells (None-Few) per lpf Urine Bacteria (None-Few) per hpf Hyaline Casts (None-Few) per lpf Ur Culture Indicated? (NO) 01/22/17 Range/Units 21:58 WBC (4.3-11.1) K/mcL RBC (4.19-5.50) M/mcL Hgb (12.9-16.9) g/dL Hct (37.5-50.1) % MCV (83.0-100.0) fL MCH (28.0-33.3) pg MCHC (31.6-35.5) g/dL RDW (11.5-14.5) % Plt Count (140-400) K/mcL MPV (9.4-12.4) fL Immature Gran % (0-4) % Seg Neutrophils % % Lymphocytes % % Monocytes % % Eosinophils % % Basophils % % Neutrophils # (1.6-8.9) K/mcL Lymphocytes # (0.6-4.6) K/mcL Monocytes # (0.0-1.3) K/mcL Eosinophils # (0.0-0.6) K/mcL Basophils # (0.0-0.2) K/mcL Sodium (136-145) mEq/L Potassium (3.5-4.5) mEq/L Chloride (98-109) mEq/L Carbon Dioxide (19-29) mEq/L BUN (8-26) mg/dL Creatinine (0.72-1.25) mg/dL Est GFR ( Amer) (> 60) Est GFR (Non-Af Amer) (> 60) BUN/Creatinine Ratio (6-26) Glucose (70-99) mg/dL Calculated Osmolality (280-300) Lactic Acid (0.5-2.2) mmol/L Calcium (8.6-10.8) mg/dL Total Bilirubin (0.2-1.2) mg/dL Direct Bilirubin (0.0-0.5) mg/dL Indirect Bilirubin (0.0-1.2) mg/dL AST (5-34) Units/L ALT (0-55) Units/L Alkaline Phosphatase (38-126) Units/L Serum Total Protein (6.0-8.3) g/dL Albumin (3.5-5.0) g/dL Globulin (2.4-3.5) g/dL Albumin/Globulin Ratio (1.1-2.2) Lipase (8-78) Units/L Urine Color Yellow (Yellow) Urine Clarity Cloudy A (Clear) Urine pH 7.0 (5.0-8.0) pH Units Ur Specific [place] 1.022 (1.010-1.025) Urine Protein 100 H (Neg-Trace) mg/dL Urine Glucose (UA) Normal (Normal) mg/dL Urine Ketones Negative (Negative) mg/dL Urine Blood Large H (Negative) Urine Nitrite Positive A (Negative) Urine Bilirubin Negative (Negative) Urine Urobilinogen Normal (Normal) mg/dL Ur Leukocyte Esterase Large H (Negative) Urine Microscopic RBC TNTC H (0-3) per hpf Urine Microscopic WBC TNTC H (0-3) per hpf Ur Squamous Epith Cells None Seen (None-Few) per lpf Urine Bacteria Many H (None-Few) per hpf Hyaline Casts None Seen (None-Few) per lpf Ur Culture Indicated? YES A (NO)
[2017-01-22 21:13] LABS: Eosinophils # 0.1 K/mcL (0.0-0.6); Eosinophils % 0.4 %; Hematocrit 37.6 % (37.5-50.1); Hemoglobin 11.2 g/dL (12.9-16.9); Immature Granulocytes % 0.3 % (0-4); Lymphocytes % 8.2 %; Mean Corpuscular HGB Conc 29.8 g/dL (31.6-35.5); Mean Corpuscular Hemoglobin 23.8 pg (28.0-33.3); Mean Corpuscular Volume 79.8 fL (83.0-100.0); Mean Platelet Volume 8.8 fL (9.4-12.4); Monocytes # 1.1 K/mcL (0.0-1.3); Monocytes % 9.4 %; Neutrophils # 9.7 K/mcL (1.6-8.9); Platelet Count 281 K/mcL (140-400); Red Blood Count 4.71 M/mcL (4.19-5.50); Red Cell Distribution Width 20.3 % (11.5-14.5); Segmented Neutrophils % 81.7 %
[2017-01-22 21:27] LABS: Alanine Aminotransferase 8 Units/L (0-55); Albumin 3.4 g/dL (3.5-5.0); Albumin/Globulin Ratio 0.8 (1.1-2.2); Alkaline Phosphatase 98 Units/L (38-126); Aspartate Amino Transferase 12 Units/L (5-34); BUN/Creatinine Ratio 15 (6-26); Bilirubin,Direct 0.2 mg/dL (0.0-0.5); Bilirubin,Indirect 0.3 mg/dL (0.0-1.2); Bilirubin,Total 0.5 mg/dL (0.2-1.2); Blood Urea Nitrogen 15 mg/dL (8-26); Calcium 9.9 mg/dL (8.6-10.8); Carbon Dioxide 33 mEq/L (19-29); Chloride 96 mEq/L (98-109); Globulin 4.1 g/dL (2.4-3.5); Glucose 113 mg/dL (70-99); Lipase 26 Units/L (8-78); Osmolality,Calculated 284 (280-300); Potassium 4.3 mEq/L (3.5-4.5); Sodium 136 mEq/L (136-145); Total Protein 7.5 g/dL (6.0-8.3); eGFR For African Americans > 60 (> 60); eGFR For Non-African Americans > 60 (> 60)
[2017-01-22 22:04] LABS: Bilirubin,Urine Negative (Negative); Blood,Urine Large (Negative); Clarity,Urine Cloudy (Clear); Color,Urine Yellow (Yellow); Glucose,Urine (UA) Normal (Normal); Ketones,Urine Negative (Negative); Leukocyte Esterase,Urine Large (Negative); Nitrite,Urine Positive (Negative); Protein,Urine 100 mg/dL (Neg-Trace); Specific Gravity,Urine 1.022 (1.010-1.025); Urobilinogen,Urine Normal (Normal)
[2017-01-22 22:15] LABS: Bacteria,Urine Many per hpf (None-Few); Hyaline Casts,Urine None Seen per lpf (None-Few); RBC,Urine TNTC per hpf (0-3); Squamous Epithelial Cell,Urine None Seen per lpf (None-Few); WBC,Urine TNTC per hpf (0-3)
[2017-01-23] MEDS ORDERED: Naloxone 0.4 MG/ML INJ IVP PRN ×2 (02:07→17:07)
[2017-01-23] MEDS ORDERED: Acetaminophen 325 MG TABLET PO PRN ×3 (02:07→17:07)
--- NOTE | 2017-01-23 02:07 | Internal Med History&Physical ---
Date of Encounter: 01/23/17 Time of Encounter: 02:07 Assessment and Plan (1) UTI (urinary tract infection) Current visit: Yes Status: Suspected Treatment with ceftriaxone 2 gm / 24 hrs. urine cultures pending. Lactate is not elevated Qualifiers: Urinary tract infection type: acute pyelonephritis Qualified Code(s): N10 - Acute pyelonephritis (2) Ureteric calculus Current visit: Yes Status: Acute CT scan reports 7 mm calculus in the left distal ureter, which seems chronic but now seem to cause obstructive uropathy. Consult urologist for possible stent placement. Hold anticoagulation for possible procedure. Pt is NPO (3) Obstructive uropathy Current visit: Yes Status: Acute Secondary to left ureteric calculus. Urology consultation. (4) Atrial fibrillation Current visit: Yes Status: Chronic Rate control at this time. Continue metoprolol and diltiazem. Qualifiers: Atrial fibrillation type: chronic Qualified Code(s): I48.2 - Chronic atrial fibrillation (5) Chronic anticoagulation Current visit: Yes Status: Chronic Patient is on Apixaban. 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 CT scan making shows b/l adrenal masses - suspicious for metastasis. Patient apparently due to see oncologist at [facility] on 01/24/2017. Will consult oncologist for further advice (7) S/P pneumonectomy Current visit: Yes Status: Acute Supportive care (8) Lung cancer Current visit: Yes Status: Acute s/p right pneumonectomy / lobectomy. Lesions in the adrenal are suspicious for metastatic disease. Oncology consult Qualifiers: Laterality: right Lung location: unspecified part of lung Qualified Code( s): C34.91 - Malignant neoplasm of unspecified part of right bronchus or lung Internal Medicine - H&P: HPI Chief complaint: Left LQ abdominal pain Admitted From: Emergency Dept Plans for Post Hospital Care: Home History of present illness: Mr. 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 He presents to the emergency department with left flank pain radiating into the left lower abdomen / groin; intermittent and sharp. 03/29 when it started and improved by the time I saw him. He reports dysuria and cloudy urine but denies hematuria. He denies left sided chest pain, shortness of breath, expectoration, fever, chills, nausea, vomiting, change in bowel habits. He was evaluated in the emergency department and the urinalysis was positive for leukocyte esterase and nitrites. CT scan of the abdomen and pelvis was positive for 7 mm stone in the distal left ureter just proximal to the left UVJ, with mild obstructive uropathy. He was given ceftriaxone and admitted to the hospitalist service for further workup and management. Past Med Surg Social Fam HX - Past Medical History Medical history: arthritis, atrial fibrillation, cancer, COPD, hyperlipidemia, hypertension, renal disease Psychiatric history: no psych history - Past Surgical History Surgical History: other - Social History Smoking Status: Former smoker Smokeless Tobacco Status: No Alcohol use: none Drug use: none - Family History Father Family Member Ethnicity: Non- Living Status: Internal Medicine - H&P: Meds Albuterol Sulfate [Ventolin Hfa] 18 gm IH QID 12/31/16 [History] Alendronate Sodium [Fosamax] 70 mg PO QWEEK 12/31/16 [History] Apixaban [Eliquis] 5 mg PO BID 12/31/16 [History] Digoxin [Lanoxin] 0.125 mg PO DAILY 12/31/16 [History] Ferrous Sulfate [Iron] 325 mg PO BID 12/31/16 [History] Furosemide [Lasix] 20 mg PO DAILY 12/31/16 [History] Ipratropium Neb [Atrovent Neb] 0.5 mg IH Q6HR PRN 12/31/16 [History] Metoprolol [Lopressor] 12.5 mg PO BID 12/31/16 [History] Potassium Chloride [Klor-Con Sprinkle] 10 meq PO DAILY 12/31/16 [History] Tamsulosin HCl [Flomax] 0.4 mg PO DAILY 12/31/16 [History] dilTIAZem HCl [Cardizem] 90 mg PO QID 12/31/16 [History] Acetaminophen [Tylenol] 650 mg PO Q6H PRN 01/22/17 [History] Cholecalciferol (D-3) [Vitamin D] 5,000 unit PO DAILY 01/22/17 [History] Cyanocobalamin (B-12) [Vitamin B12] 1,000 mcg IM Q2W 01/22/17 [History] Docusate Sodium [Dok] 100 mg PO BID PRN 01/22/17 [History] Melatonin [Melatin] 3 mg PO HS 01/22/17 [History] Sennosides [Senna] 17.2 mg PO BID 01/22/17 [History] Allergies No Known Allergies Allergy (Verified 08/27/16 10:25) All Systems PM: A 10-system review of systems was performed and is negative for pertinent findings except as documented above in the HPI. - Constitutional Vitals: Temp Pulse Resp BP Pulse Ox 98.1 F 80 14 133/84 97 01/23/17 01:14 01/23/17 01:14 01/23/17 01:14 01/23/17 01:14 01/23/17 01:14 Exam: General: Not in acute distress at the time of my evaluation HEENT: Oral mucosa is moist. No conjunctival palor or scleral icterus Neck: No obvious neck swellings Lungs: Few basal crackles. There is scar of right lobectomy Cardiac: Irregular rhythm Abdomen: Soft, non tender. Bowel sounds present. No renal angle tenderness Genitourinary: No guzman catheter Neurological: Alert and oriented. No gross localizing deficits Psych: Not aggressive or agitated Extremities: no significant leg edema Skin: No generalized rash Internal Med - H&P Results - Labs CBC & Chem 7: 01/22/17 21:07 01/22/17 21:07 Labs: Urinalysis is positive for leukocyte esterase and nitrite - EKG Data -: EKG Interpreted by Myself - EKG Data Prior EKG available for review: yes When compared to previous EKG: there is no significant change EKG comments: Atrial fibrillation with heart rate of 87 01/23/17 04:47 - Impressions ITS Impressions Abdomen/Pelvis CT 01/22/17 20:54 IMPRESSION: There is a 7 mm stone in the distal left ureter just proximal to the left UVJ with mild obstructing uropathy proximal to this. Stone was present on prior CT exam but the mild obstructing uropathy appears to be new from prior exam. Stable nonobstructing stone to the right kidney. Interval development of bilateral adrenal mass lesions concerning for metastatic disease given the clinical history. Mild degree of nonspecific fat stranding about the left adrenal lesion. Stable moderately sized hiatal hernia. Postsurgical change to visualized right lung base compatible with clinical history of interval partial pneumonectomy with fluid present in the pneumonectomy defect. Stable enlarged prostate. D/ / 01/22/2017 21:42:04 Nadir Gan MD / raffaele Interpreting Provider: Nadir Gan MD
[2017-01-23] MEDS ORDERED: *HR* Morphine 2 MG/ML SYRINGE IVP PRN ×2 (02:12→17:07)
[2017-01-23] MEDS ORDERED: *HR* HYDROcodone/Acet 5/325 mg TABLET PO PRN (02:12)
[2017-01-23] MEDS ORDERED: 0.9 % Sodium Chloride 1,000 ML IVC SCH (02:15)
[2017-01-23] MEDS ORDERED: Melatonin 3 MG TABLET PO SCH ×2 (02:30→21:00)
[2017-01-23] MEDS: dilTIAZem HCl 60 MG TABLET PO SCH ×4 (03:08→20:56)
--- NOTE | 2017-01-23 06:50 | Urology - Consult Note ---
Date of Encounter: 01/23/17 Time of Encounter: 06:50 - Assessment and Plan (1) Ureteral stone with hydronephrosis Current Visit: Yes Status: Acute Assessment and plan: Based on the size of the stone, recent illness, persistent UTI I feel that a stone extraction with stent placement is necessary. I feel it is safe to proceed with a stone extraction rather a stent placement only, because the stone is in a distal position and should not require significant manipulation. Likely evaluate renal cysts as an outpatient to verify they are not solid or enhancing. All questions from the patient were answered. He will be scheduled this afternoon (2) UTI (urinary tract infection) Current Visit: Yes Status: Suspected Assessment and plan: The UTI is likely secondary to the ureteral calculi. Non-clearance with antibiotics because of the nidus. Should improve with treatment of the stone Qualifiers: Urinary tract infection type: acute pyelonephritis Qualified Code(s): N10 - Acute pyelonephritis Urology CN:[facility] Consult date: 01/23/17 Reason for consult Urology: Hydronephrosis History of present illness: Patient known to the urology service for history of prostate cancer and distant history of bladder cancer. Recent issues with UTI. Has had pain in his left lower quadrant for the last few weeks. CT scan at admission demonstrates an 8 mm distal left ureteral calculi with hydronephrosis. Culture proven UTIs. Low- grade fever at home. States he has not felt well. Past Med Surg Social Fam HX - Past Medical History Medical history: arthritis, atrial fibrillation, cancer, COPD, hyperlipidemia, hypertension, renal disease Psychiatric history: no psych history - Past Surgical History Surgical History: other - Social History Smoking Status: Former smoker Smokeless Tobacco Status: No Alcohol use: none Drug use: none - Family History Father Family Member Ethnicity: Non- Living Status: Medications and Allergies Albuterol Sulfate [Ventolin Hfa] 18 gm IH QID 12/31/16 [History] Alendronate Sodium [Fosamax] 70 mg PO QWEEK 12/31/16 [History] Apixaban [Eliquis] 5 mg PO BID 12/31/16 [History] Digoxin [Lanoxin] 0.125 mg PO DAILY 12/31/16 [History] Ferrous Sulfate [Iron] 325 mg PO BID 12/31/16 [History] Furosemide [Lasix] 20 mg PO DAILY 12/31/16 [History] Ipratropium Neb [Atrovent Neb] 0.5 mg IH Q6HR PRN 12/31/16 [History] Metoprolol [Lopressor] 12.5 mg PO BID 12/31/16 [History] Potassium Chloride [Klor-Con Sprinkle] 10 meq PO DAILY 12/31/16 [History] Tamsulosin HCl [Flomax] 0.4 mg PO DAILY 12/31/16 [History] dilTIAZem HCl [Cardizem] 90 mg PO QID 12/31/16 [History] Acetaminophen [Tylenol] 650 mg PO Q6H PRN 01/22/17 [History] Cholecalciferol (D-3) [Vitamin D] 5,000 unit PO DAILY 01/22/17 [History] Cyanocobalamin (B-12) [Vitamin B12] 1,000 mcg IM Q2W 01/22/17 [History] Docusate Sodium [Dok] 100 mg PO BID PRN 01/22/17 [History] Melatonin [Melatin] 3 mg PO HS 01/22/17 [History] Sennosides [Senna] 17.2 mg PO BID 01/22/17 [History] Allergies No Known Allergies Allergy (Verified 08/27/16 10:25) Review of Systems - Constitutional fatigue, fever(s) - EENT Nose, mouth and throat: no dizziness - Cardiovascular no chest pain - Respiratory no cough - Gastrointestinal abdominal pain, nausea - Genitourinary flank pain - Musculoskeletal back pain - Integumentary no erythema - Neurological no confusion - Psychiatric no anxiety - Hematologic/Lymphatic no easy bleeding - Allergic/Immunologic no throat swelling Exam Initial Vital Signs Temp Pulse Resp BP Pulse Ox 98.5 F 107 18 154/89 100 01/22/17 18:19 01/22/17 18:19 01/22/17 18:19 01/22/17 18:19 01/22/17 18:19 - General physical appearance Present: well developed, no distress - Eyes Present: PERRL - ENT Present: normal nares - Neck Present: no masses - Respiratory Present: normal respiratory effort (On oxygen) - Cardiovascular Cardiovascular exam IM: RRR - Abdomen Abdomen: Present: soft - Integumentary Present: no rash - Neurologic Present: normal coordination. Absent: disoriented, confused - Musculoskeletal Present: normal gait Urology Results - Labs 01/22/17 21:07 01/22/17 21:07 Abnormal lab results WBC 11.9 K/mcL (4.3-11.1) H 01/22/17 21:07 Hgb 11.2 g/dL (12.9-16.9) L 01/22/17 21:07 MCV 79.8 fL (83.0-100.0) L 01/22/17 21:07 MCH 23.8 pg (28.0-33.3) L 01/22/17 21:07 MCHC 29.8 g/dL (31.6-35.5) L 01/22/17 21:07 RDW 20.3 % (11.5-14.5) H 01/22/17 21:07 MPV 8.8 fL (9.4-12.4) L 01/22/17 21:07 Neutrophils # 9.7 K/mcL (1.6-8.9) H 01/22/17 21:07 Chloride 96 mEq/L (98-109) L 01/22/17 21:07 Carbon Dioxide 33 mEq/L (19-29) H 01/22/17 21:07 Glucose 113 mg/dL (70-99) H 01/22/17 21:07 POC Glucose 100 (58-89) H 01/23/17 05:47 Albumin 3.4 g/dL (3.5-5.0) L 01/22/17 21:07 Globulin 4.1 g/dL (2.4-3.5) H 01/22/17 21:07 Albumin/Globulin Ratio 0.8 (1.1-2.2) L 01/22/17 21:07 Urine Clarity Cloudy (Clear) A 01/22/17 21:58 Urine Protein 100 mg/dL (Neg-Trace) H 01/22/17 21:58 Urine Blood Large (Negative) H 01/22/17 21:58 Urine Nitrite Positive (Negative) A 01/22/17 21:58 Ur Leukocyte Esterase Large (Negative) H 01/22/17 21:58 Urine Microscopic RBC TNTC per hpf (0-3) H 01/22/17 21:58 Urine Microscopic WBC TNTC per hpf (0-3) H 01/22/17 21:58 Urine Bacteria Many per hpf (None-Few) H 01/22/17 21:58 Ur Culture Indicated? YES (NO) A 01/22/17 21:58 All other labs normal. Consult Discharge Plan - Plan Referrals: Doc Drake, [Primary Care Provider] -
[2017-01-23 07:10] LABS: Basophils % 0.1 %; Eosinophils # 0.1 K/mcL (0.0-0.6); Eosinophils % 1.4 %; Hematocrit 33.8 % (37.5-50.1); Hemoglobin 10.1 g/dL (12.9-16.9); Immature Granulocytes % 0.4 % (0-4); Lymphocytes # 1.3 K/mcL (0.6-4.6); Mean Corpuscular HGB Conc 29.9 g/dL (31.6-35.5); Mean Corpuscular Hemoglobin 24.1 pg (28.0-33.3); Mean Corpuscular Volume 80.7 fL (83.0-100.0); Mean Platelet Volume 9.3 fL (9.4-12.4); Monocytes # 1.2 K/mcL (0.0-1.3); Monocytes % 12.5 %; Neutrophils # 6.7 K/mcL (1.6-8.9); Platelet Count 275 K/mcL (140-400); Red Blood Count 4.19 M/mcL (4.19-5.50); Red Cell Distribution Width 20.4 % (11.5-14.5); Segmented Neutrophils % 71.6 %
[2017-01-23 07:27] LABS: BUN/Creatinine Ratio 14 (6-26); Blood Urea Nitrogen 12 mg/dL (8-26); Carbon Dioxide 32 mEq/L (19-29); Chloride 98 mEq/L (98-109); Glucose 95 mg/dL (70-99); Magnesium 1.4 mg/dL (1.6-2.6); Osmolality,Calculated 282 (280-300); Potassium 3.9 mEq/L (3.5-4.5); Sodium 136 mEq/L (136-145); eGFR For African Americans > 60 (> 60); eGFR For Non-African Americans > 60 (> 60)
[2017-01-23] MEDS ORDERED: Lactobacillus 1 EACH CAP.SPRINK PO SCH (09:00)
[2017-01-23] MEDS ORDERED: *HR* Digoxin 0.125 MG TABLET PO SCH (09:00)
--- NOTE | 2017-01-23 14:23 | Anesthesia Evaluation PreOp ---
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 History: Denies Any Significant HX Other Medical History: Other (Adrenal Mass, Lung CA, Prostate CA) Anesthesia History: No Prior Anesthetic Complications, Past Anesthesia ( Pneumonectomy (Right lobectomy)) Alcohol Use: none Drug use: none Medications and Allergies Albuterol Sulfate [Ventolin Hfa] 18 gm IH QID 12/31/16 [History] Alendronate Sodium [Fosamax] 70 mg PO QWEEK 12/31/16 [History] Apixaban [Eliquis] 5 mg PO BID 12/31/16 [History] Digoxin [Lanoxin] 0.125 mg PO DAILY 12/31/16 [History] Ferrous Sulfate [Iron] 325 mg PO BID 12/31/16 [History] Furosemide [Lasix] 20 mg PO DAILY 12/31/16 [History] Ipratropium Neb [Atrovent Neb] 0.5 mg IH Q6HR PRN 12/31/16 [History] Metoprolol [Lopressor] 12.5 mg PO BID 12/31/16 [History] Potassium Chloride [Klor-Con Sprinkle] 10 meq PO DAILY 12/31/16 [History] Tamsulosin HCl [Flomax] 0.4 mg PO DAILY 12/31/16 [History] dilTIAZem HCl [Cardizem] 90 mg PO QID 12/31/16 [History] Acetaminophen [Tylenol] 650 mg PO Q6H PRN 01/22/17 [History] Cholecalciferol (D-3) [Vitamin D] 5,000 unit PO DAILY 01/22/17 [History] Cyanocobalamin (B-12) [Vitamin B12] 1,000 mcg IM Q2W 01/22/17 [History] Docusate Sodium [Dok] 100 mg PO BID PRN 01/22/17 [History] Melatonin [Melatin] 3 mg PO HS 01/22/17 [History] Sennosides [Senna] 17.2 mg PO BID 01/22/17 [History] Allergies No Known Allergies Allergy (Verified 08/27/16 10:25) - Meds/Allergy Pre-op Review Medications Reviewed: Yes Allergies Reviewed: Yes Beta Blockers on Current Med List: Yes If Beta Blockers taken, Date/Time (Last Dose taken): 01/23/2017 08:48 Anesthesia Results - Labs 01/23/17 06:08 01/23/17 06:08 Stress 11/24/16 EF- 70% No ischemia - Imaging EKG: image reviewed (Afib Rate 87) Anesthesia Exam O2 Sat Height 1.83 m Height 1.83 m Weight 89.539 kg Weight 89.539 kg Weight 93.894 kg O2 Sat by Pulse Oximetry 98 O2 Sat by Pulse Oximetry 94 O2 Sat by Pulse Oximetry 98 O2 Sat by Pulse Oximetry 98 O2 Sat by Pulse Oximetry 98 O2 Sat by Pulse Oximetry 98 O2 Sat by Pulse Oximetry 97 O2 Sat by Pulse Oximetry 98 O2 Sat by Pulse Oximetry 95 O2 Sat by Pulse Oximetry 100 Vital Signs Temp Pulse Resp BP Pulse Ox 98.5 F 107 18 154/89 100 01/22/17 18:19 01/22/17 18:19 01/22/17 18:19 01/22/17 18:19 01/22/17 18:19 Vital Signs/O2 Sat, Most Current Temp Pulse Resp BP Pulse Ox 98.4 F 73 17 113/73 98 01/23/17 11:27 01/23/17 11:27 01/23/17 11:27 01/23/17 11:27 01/23/17 11:27 Height: 6' Weight: 197# NPO (# of Hours): > 8 hrs Pain Scale: 0 Pain Scale Used: Numeric (1 - 10) - HEENT Pupil (Motor): Pupils equal, EOMI Mallampati: II Teeth: Edentulous Oral Opening: Greater than 3 - DIPLOMA DENTAL ASSISTANT LOC: Oriented DIPLOMA DENTAL ASSISTANT Motor: Normal RUE, Normal LUE, Normal RLE, Normal LLE, Normal Face DIPLOMA DENTAL ASSISTANT Sensory: Normal: RUE, LUE, RLE, LLE, Face - Cardiac Rhythm: Irregular Murmur: None JVD: No Carotid Bruit: No - Pulmonary Breath Sounds: bilateral Clear Respiratory Effort: Symmetrical Anesthesia Assess/Plan ASA Score: 3 Modified Rei Scale for Level of Consciousness: Cooperative, oriented, and tranquil Anesthetic Plan: General, Regional Monitoring Plan: Standard Monitors Recovery Plan: PACU
[2017-01-23] MEDS ORDERED: Lidocaine -MPF 2% 2 ML VIAL ONE (14:41)
[2017-01-23] MEDS ORDERED: Dexamethasone 4 MG/ML VIAL ONE (14:41)
[2017-01-23] MEDS ORDERED: *HR* Propofol 200 MG/20 ML VIAL IVP ONE (14:41)
[2017-01-23] MEDS ORDERED: *HR* FentaNYL (PF) 100 MCG/2 ML VIAL ONE (14:41)
[2017-01-23] MEDS ORDERED: Ondansetron 4 MG/2 ML VIAL ONE (14:41)
--- NOTE | 2017-01-23 15:28 | Operative Note ---
Date of procedure: 01/23/17 Pre-op diagnosis: left 8 mm ureteral stone Post-op diagnosis: same Procedure: left ureteroscopic stone extraction with holmium laser leo left retrograde pyelogram left JJ stent Anesthesia: GETA Surgeon: Danny Torres Estimated blood loss (cc): 5 Specimen: stone Condition: stable Disposition: PACU Procedure in Detail: PROCEDURE IN DETAIL: Patient was taken back to the operating room, positioned supine on the operating table. Anesthesia was applied without complication. They were moved into dorsal lithotomy. Careful attention was maintained to cushion all pressure points for patient's safety. They were prepped and draped in sterile fashion. Time-out was performed with the proper patient and procedure. A 21-Surinamese rigid cystoscope was inserted into the bladder without difficulty. Systematic examination of bladder revealed no abnormalities. I had significant difficulty identifying the left ureteral orifice likely secondary to previous radiation therapy. I eventually identified what I felt was the ureteral orifice. It required an angled-tip zip wire to actually access. Once the zip wire was in place I was able to pass a 5 Surinamese ureteral catheter and perform a retrograde pyelogram which confirmed the presence of the stone and hydroureter. The ureteral orifice was cannulated using a 5-Surinamese ureteral Catheter and a retrograde pyelogram was performed using Isovue. An 8-10 dilator was then placed over the zip wire to passively dilate the ureteral orifice. A semi-rigid ureteroscope was carefully inserted into the bladder and guided into the ureteral oriface. At that point, the stone was encountered and I felt that it required fragmentation for safe extraction. A 200 micron holmium laser fiber on a setting of 8 and 800 was used to fragment the stone into multiple pieces. The fragments were individually basketed out of the ureter with a 1.9 tipless basket. All stone in the ureter was removed. A 4.8 x 26 ureteral stent was placed over the zip wire under fluoroscopy without complication. The bladder was drained along with the stone fragments. They were collected and sent for stone analysis. No string was left attached to the stent. Reyes catheter was placed with return of light hematuric urine
[2017-01-23] MEDS ORDERED: *HR* Succinylcholine 200 MG/10 ML VIAL IVP ONE (15:29)
[2017-01-23] MEDS ORDERED: *HR* Labetalol 100 MG/20 ML MDV IVP PRN (16:10)
[2017-01-23] MEDS ORDERED: *HR* HYDROmorphone (PF) 1 MG/ML SYRINGE IVP PRN (16:10)
[2017-01-23] MEDS ORDERED: Ondansetron 4 MG/2 ML VIAL IVP PRN (16:10)
--- NOTE | 2017-01-23 17:02 | Anesthesia Evaluation Post Op ---
Date of Encounter: 01/23/17 Time of Encounter: 17:05 - Vital Signs Vital Signs: Vital Signs/O2 Sat/Glucose, Most Current Temp Pulse Resp BP Pulse Ox 01/23/17 16:51 74 16 129/66 100 01/23/17 16:41 81 18 101/59 100 01/23/17 16:31 97.8 F 77 16 117/25 95 - Lungs Lungs: Clear Ascult./Percussion - Airway Airway: Non-obstructed - Cardiovascular Regular Rate - Mental Status Mental Status: Alert & Oriented, Answers Appropriately - Pain Pain Scale: 0 - Nausea Vomiting Nausea Vomiting: Not Present - Hydration Hydration: Ice chips - Discharge PostOp Status: Transfer Patient to floor
[2017-01-23] MEDS ORDERED: Ipratropium Neb 0.5 MG NEBULIZER IH PRN (17:07)
[2017-01-23] MEDS ORDERED: NON-FORMULARY MEDICATION 1 EACH EACH (Alendronate Sodium [Fosamax] 70 MG) PO SCH (17:07)
[2017-01-23] MEDS: 0.9 % Sodium Chloride 1,000 ML IVC SCH (18:08)
[2017-01-23] MEDS: *HR* HYDROcodone/Acet 5/325 mg TABLET PO PRN (19:54)
[2017-01-23] MEDS: Sennosides 8.6 MG TABLET PO SCH (20:55)
[2017-01-23] MEDS: Lactobacillus 1 EACH CAP.SPRINK PO SCH (20:57)
--- NOTE | 2017-01-23 23:55 | Electrocardiograph Report ---
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
--- NOTE | 2017-01-24 07:30 | Urology Progress Note ---
Date of Encounter: 01/24/17 Time of Encounter: 07:27 - Assessment and Plan (1) Ureteral stone with hydronephrosis Current Visit: Yes Status: Resolved Assessment and plan: pt doing much better. ok to take guzman out. ok for discharge per standpoint. will need cysto stent removal in the office in next 2-4 weeks. (2) UTI (urinary tract infection) Current Visit: Yes Status: Suspected Qualifiers: Urinary tract infection type: acute pyelonephritis Qualified Code(s): N10 - Acute pyelonephritis Progress Note Subjective: no new complaints, pain is less Narrative: feels much better. Objective Initial Vital Signs Temp Pulse Resp BP Pulse Ox 98.5 F 107 18 154/89 100 01/22/17 18:19 01/22/17 18:19 01/22/17 18:19 01/22/17 18:19 01/22/17 18:19 - General physical appearance Present: well developed, no distress - Additional Exam urine clear. - Labs 01/23/17 06:08 01/23/17 06:08 Diabetes panel 01/23/17 Range/Units 06:08 Sodium 136 (136-145) mEq/L Potassium 3.9 (3.5-4.5) mEq/L Chloride 98 (98-109) mEq/L Carbon Dioxide 32 H (19-29) mEq/L BUN 12 (8-26) mg/dL Creatinine 0.87 (0.72-1.25) mg/dL Glucose 95 (70-99) mg/dL Calcium 9.0 (8.6-10.8) mg/dL Calcium panel 01/23/17 Range/Units 06:08 Calcium 9.0 (8.6-10.8) mg/dL Pituitary panel 01/23/17 Range/Units 06:08 Sodium 136 (136-145) mEq/L Potassium 3.9 (3.5-4.5) mEq/L Chloride 98 (98-109) mEq/L Carbon Dioxide 32 H (19-29) mEq/L BUN 12 (8-26) mg/dL Creatinine 0.87 (0.72-1.25) mg/dL Glucose 95 (70-99) mg/dL Calcium 9.0 (8.6-10.8) mg/dL Adrenal panel 01/23/17 Range/Units 06:08 Sodium 136 (136-145) mEq/L Potassium 3.9 (3.5-4.5) mEq/L Chloride 98 (98-109) mEq/L Carbon Dioxide 32 H (19-29) mEq/L BUN 12 (8-26) mg/dL Creatinine 0.87 (0.72-1.25) mg/dL Glucose 95 (70-99) mg/dL Calcium 9.0 (8.6-10.8) mg/dL - VTE Reasons for not Prescribing Prophylaxis: Not indicated-Anticoagulated or INR therapeutic Documentation of Mechanical Device: Intermittent pneumatic compression device Consult Discharge Plan - Plan Referrals: Doc Drake DO [Primary Care Provider] -
[2017-01-24] MEDS: 0.9 % Sodium Chloride 1,000 ML IVC SCH (07:47)
[2017-01-24] MEDS: dilTIAZem HCl 60 MG TABLET PO SCH ×2 (07:48→12:59)
[2017-01-24] MEDS: Lactobacillus 1 EACH CAP.SPRINK PO SCH (07:48)
[2017-01-24] MEDS: Sennosides 8.6 MG TABLET PO SCH (07:50)
[2017-01-24] MEDS: *HR* HYDROcodone/Acet 5/325 mg TABLET PO PRN (08:07)
[2017-01-24] MEDS ORDERED: Furosemide 20 MG TABLET PO SCH (09:00)
[2017-01-24] MEDS ORDERED: *HR* Digoxin 0.125 MG TABLET PO SCH (09:00)
--- NOTE | 2017-01-24 10:24 | Discharge Summary ---
Date of Encounter: 01/24/17 Time of Encounter: 10:18 - Discharge Diagnosis (1) COPD (chronic obstructive pulmonary disease) Priority: Secondary Status: Acute Qualifiers: COPD type: unspecified COPD Qualified Code(s): J44.9 - Chronic obstructive pulmonary disease, unspecified (2) UTI (urinary tract infection) Priority: Primary Status: Suspected Qualifiers: Urinary tract infection type: acute pyelonephritis Qualified Code(s): N10 - Acute pyelonephritis (3) Ureteral stone with hydronephrosis Priority: Primary Status: Resolved - Discharge Medications Prescriptions: Cefdinir [Omnicef] 300 mg PO BID 5 Days HYDROcodone/Acet 5/325 mg [[place] 5-325 mg] 1 tab PO Q6H PRN #30 tab PRN Reason: Pain Home Medications: Albuterol Sulfate [Ventolin Hfa] 18 gm IH QID 12/31/16 [History] Alendronate Sodium [Fosamax] 70 mg PO QWEEK 12/31/16 [History] Apixaban [Eliquis] 5 mg PO BID 12/31/16 [History] Digoxin [Lanoxin] 0.125 mg PO DAILY 12/31/16 [History] Ferrous Sulfate [Iron] 325 mg PO BID 12/31/16 [History] Furosemide [Lasix] 20 mg PO DAILY 12/31/16 [History] Ipratropium Neb [Atrovent Neb] 0.5 mg IH Q6HR PRN 12/31/16 [History] Metoprolol [Lopressor] 12.5 mg PO BID 12/31/16 [History] Potassium Chloride [Klor-Con Sprinkle] 10 meq PO DAILY 12/31/16 [History] Tamsulosin HCl [Flomax] 0.4 mg PO DAILY 12/31/16 [History] dilTIAZem HCl [Cardizem] 90 mg PO QID 12/31/16 [History] Acetaminophen [Tylenol] 650 mg PO Q6H PRN 01/22/17 [History] Cholecalciferol (D-3) [Vitamin D] 5,000 unit PO DAILY 01/22/17 [History] Cyanocobalamin (B-12) [Vitamin B12] 1,000 mcg IM Q2W 01/22/17 [History] Docusate Sodium [Dok] 100 mg PO BID PRN 01/22/17 [History] Melatonin [Melatin] 3 mg PO HS 01/22/17 [History] Sennosides [Senna] 17.2 mg PO BID 01/22/17 [History] Cefdinir [Omnicef] 300 mg PO BID 5 Days 01/24/17 [Rx] HYDROcodone/Acet 5/325 mg [[place] 5-325 mg] 1 tab PO Q6H PRN #30 tab 01/24/17 [Rx ] Allergies/Adverse Reactions: Allergies No Known Allergies Allergy (Verified 08/27/16 10:25) Date of admission: 01/23/17 02:07 Primary care physician: Doc Drake DO Consults: 01/23/17 02:17 Consult to Oncology [CONS] Routine Consulting Provider: [facility] Reason for Consult: possible adrenal metastases; known lung cancer Call Completed: No Discharging clinician: Lazara Bernal Anticipated date of discharge: 01/24/17 - Patient Status Disposition: Home, Self-Care Condition: Fair Functional capacity at discharge: independent ambulation Overall status at discharge: patient is back to baseline - Discharge Instructions Follow Up With: Danny Torres MD [Partnered Physician] - 02/21/17 2:00 pm - Diet and Activity Activity: resume usual activities as tolerated Diet: advance to your usual diet Interval History: Mr. 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 He presents to the emergency department with left flank pain radiating into the left lower abdomen / groin. He reports dysuria and cloudy urine but denies hematuria. He was evaluated in the emergency department and the urinalysis was positive for leukocyte esterase and nitrites. CT scan of the abdomen and pelvis was positive for 7 mm stone in the distal left ureter just proximal to the left UVJ , with mild obstructive uropathy. He was given ceftriaxone and admitted to the hospitalist service for further workup and management. Urology was consulted and he underwent left ureteroscopic stone extraction with holmium laser leithotripsy. left retrograde pyelogram left JJ stent. He remained stable postprocedure, patient will follow-up with urology as outpatient, he is being discharged today on oral antibiotics for UTI. Hospital course: Mr. Gonzales is a 77 year old male - Time Spent with Patient Total time spent providing and/or coordinating discharge services: - Constitutional Vitals: Temp Pulse Resp BP Pulse Ox 97.6 F 100 18 148/89 99 01/24/17 07:11 01/24/17 07:11 01/24/17 07:11 01/24/17 07:11 01/24/17 07:11 Exam: General: Not in acute distress at the time of my evaluation HEENT: Oral mucosa is moist. No conjunctival palor or scleral icterus Neck: No obvious neck swellings Lungs: Few basal crackles. There is scar of right lobectomy Cardiac: Irregular rhythm Abdomen: Soft, non tender. Bowel sounds present. No renal angle tenderness Genitourinary: No guzman catheter Neurological: Alert and oriented. No gross localizing deficits Psych: Not aggressive or agitated Extremities: no significant leg edema Skin: No generalized rash - VTE Reasons for not Prescribing Prophylaxis: Not indicated-Anticoagulated or INR therapeutic Documentation of Mechanical Device: Intermittent pneumatic compression device
[2017-01-24] MEDS ORDERED: Magnesium Sulfate 1 GM in D5% in Water 100 ML IVPB ONE (10:59)
[2017-01-24 11:30] VITALS: BP 132/77
[2017-01-24] MEDS ORDERED: APIXABAN 5 MG TABLET PO SCH (12:00)
--- NOTE | 2017-01-24 12:59 | Physician Discharge Referral ---
Home Health/Hosp Referral Info Transfer to: Home Health Attending Provider: altagracia galloway - Diagnosis (1) COPD (chronic obstructive pulmonary disease) Status: Acute (2) UTI (urinary tract infection) Status: Suspected (3) Ureteral stone with hydronephrosis Status: Resolved - Respiratory Orders Smoking Cessation: Smoking cessation has been advised. For more information, call the [employer] Tobacco Quit Line at 8-503-ZDZL-NOW. - Diet/Nutrition Diet/Nutrition Orders: Regular - Activity Activity Orders: Up ad evelina - Services Needed Following services are medically necessary services: Nursing, Home Health Aide, Physical Therapy, Occupational Therapy - Transfer Medications Prescriptions: Cefdinir [Omnicef] 300 mg PO BID 5 Days HYDROcodone/Acet 5/325 mg [[place] 5-325 mg] 1 tab PO Q6H PRN #30 tab PRN Reason: Pain Home Medications: Albuterol Sulfate [Ventolin Hfa] 18 gm IH QID 12/31/16 [History] Alendronate Sodium [Fosamax] 70 mg PO QWEEK 12/31/16 [History] Apixaban [Eliquis] 5 mg PO BID 12/31/16 [History] Digoxin [Lanoxin] 0.125 mg PO DAILY 12/31/16 [History] Ferrous Sulfate [Iron] 325 mg PO BID 12/31/16 [History] Furosemide [Lasix] 20 mg PO DAILY 12/31/16 [History] Ipratropium Neb [Atrovent Neb] 0.5 mg IH Q6HR PRN 12/31/16 [History] Metoprolol [Lopressor] 12.5 mg PO BID 12/31/16 [History] Potassium Chloride [Klor-Con Sprinkle] 10 meq PO DAILY 12/31/16 [History] Tamsulosin HCl [Flomax] 0.4 mg PO DAILY 12/31/16 [History] dilTIAZem HCl [Cardizem] 90 mg PO QID 12/31/16 [History] Acetaminophen [Tylenol] 650 mg PO Q6H PRN 01/22/17 [History] Cholecalciferol (D-3) [Vitamin D] 5,000 unit PO DAILY 01/22/17 [History] Cyanocobalamin (B-12) [Vitamin B12] 1,000 mcg IM Q2W 01/22/17 [History] Docusate Sodium [Dok] 100 mg PO BID PRN 01/22/17 [History] Melatonin [Melatin] 3 mg PO HS 01/22/17 [History] Sennosides [Senna] 17.2 mg PO BID 01/22/17 [History] Cefdinir [Omnicef] 300 mg PO BID 5 Days 01/24/17 [Rx] HYDROcodone/Acet 5/325 mg [[place] 5-325 mg] 1 tab PO Q6H PRN #30 tab 01/24/17 [Rx ] Allergies/Adverse Reactions: Allergies No Known Allergies Allergy (Verified 08/27/16 10:25) Certification: Further, I certify that my clinical findings support that this patient is homebound (i.e. absences from home require considerable and taxing effort and are for medical reasons or mandaeism services or infrequently or short duration when for other reasons) because: Homebound Reason: Patient requires assistance of a person or device to safely leave home Attestation: My signature below is to certify that this patient is under my care and that I, or nurse practitioner, or a physician's records management assistant working with me, has a face-to -face encounter with this patient.
--- NOTE | 2017-01-24 13:26 | Oncology Inp Consult Note ---
Date of Encounter: 01/24/17 Time of Encounter: 13:21 - Data of Consult Patient: known to practice within the last 3 years Consult date: 01/24/17 Requesting Physician: Lazara Bernal Primary Care Provider: Doc Drake DO - Consult Narrative Reason for consult: Lung cancer History of present illness: Mr. Gonzales is a 77 year old gentleman seen in consultation for recently diagnosed, resected lung cancer. Patient is known to oncology and was previously seen by my partner Dr. Hemphill 09/14/16 regarding his lung cancer. At the time, he had an indeterminate biopsy from the 6 cm right lower lobe primary mass lesion which returned positive for undifferentiated malignant epithelioid and spindle neoplasm. Repeat biopsy was recommended for clarification. He subsequently had a repeat chest CT at [facility] which showed a 9.6 cm right lower lobe, pleural-based mass is associated with small right pleural effusion and a small located pericardial effusion. PET/CT 09/20/16 showed isolated hypermetabolic right lower lobe mass. Repeat biopsy to 617 came back positive for poorly differentiated non-small cell lung cancer. PDL 1 positive (95% tumor score). Plsql Developer mutation negative. On 11/29/16, he had a right lower lobectomy with mediastinal node exam by Dr. Boyd Joseph and at 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 Resection margins negative but visceral pleural invasion present. 15 lymph nodes examined negative for malignancy but no other high risk features such as lymphovascular invasion etc. Stage: T3 N0 M0-stage II lung cancer Following his postoperative recovery, he was evaluated by Dr. Jonathan Martinez 01/[address] [facility] who recommended adjuvant chemotherapy for his large sized tumor with carbotaxol regimen. Patient elected to receive his care closer to home and Dr. Joseph was kind enough to discuss patient's case with me regarding receiving chemotherapy locally. He he was scheduled to see me in the office sometime later today. Patient is currently hospitalized for acute painful stone in the distal left ureter associated with hydronephrosis. He was evaluated by Dr. Danny Torres who performed a surgical stone extraction with left-sided stent placement yesterday. Patient is feeling considerably better today and is hoping for discharge sometime during the course of the day today. Abdomen CT 01/22/17 on admission was concerned about interval development of bilateral adrenal mass lesions concerning for metastatic disease. Oncology is consulted re: evaluation and management of patient's underlying lung cancer. Patient and examined at bedside. Chart review for details of ongoing care by hospital team which is much appreciated. He reports feeling considerably better following history extraction procedure. He is not having any new physical complaints at the present time. I reviewed his records extensively from [facility] on [facility] doc-link for details of his oncologic background to this point. He last saw Dr. Joseph 12/28/16 who gave him a good report regarding his postoperative recovery and given the okay to start adjuvant chemotherapy per medical oncology. Rest of past medical, surgical, family, social history detailed below and verified with patient today. Review of systems: 12 point review of systems performed with patient and positive findings noted in history of present illness. All other systems are negative: Physical exam: Vital Signs Temp 98.6 F 01/24/17 11:28 Pulse 78 01/24/17 11:28 Resp 19 01/24/17 11:28 BP 132/77 01/24/17 11:28 Pulse Ox 95 01/24/17 11:28 GENERAL: Alert and oriented, comfortable appearing. Mental Status: Affect appropriate for circumstances HEENT: Sclerae anicteric. No mucositis or thrush. No other oral or pharyngeal lesions or erythema. Skin: No rashes or petechiae. No evidence of skin malignancy Lymph nodes: No cervical, supraclavicular, axillary, or inguinal adenopathy. Lungs: Clear to auscultation bilaterally. Clear to percussion bilaterally. Cardiovascular: Regular rate and rhythm. No gallops, murmurs, or rubs. Abdomen: Soft, nontender; No organomegaly or masses palpable. Extremities: No edema. No calf swelling or tenderness. No joint deformity. Neurologic: Alert, normal gait; no focal weakness or sensory abnormalities. Results: Laboratory Last Values WBC 9.4 K/mcL (4.3-11.1) 01/23/17 06:08 RBC 4.19 M/mcL (4.19-5.50) 01/23/17 06:08 Hgb 10.1 g/dL (12.9-16.9) L 01/23/17 06:08 Hct 33.8 % (37.5-50.1) L 01/23/17 06:08 MCV 80.7 fL (83.0-100.0) L 01/23/17 06:08 MCH 24.1 pg (28.0-33.3) L 01/23/17 06:08 MCHC 29.9 g/dL (31.6-35.5) L 01/23/17 06:08 RDW 20.4 % (11.5-14.5) H 01/23/17 06:08 Plt Count 275 K/mcL (140-400) 01/23/17 06:08 MPV 9.3 fL (9.4-12.4) L 01/23/17 06:08 Immature Gran % 0.4 % (0-4) 01/23/17 06:08 Seg Neutrophils % 71.6 % 01/23/17 06:08 Lymphocytes % 14.0 % 01/23/17 06:08 Monocytes % 12.5 % 01/23/17 06:08 Eosinophils % 1.4 % 01/23/17 06:08 Basophils % 0.1 % 01/23/17 06:08 Neutrophils # 6.7 K/mcL (1.6-8.9) 01/23/17 06:08 Lymphocytes # 1.3 K/mcL (0.6-4.6) 01/23/17 06:08 Monocytes # 1.2 K/mcL (0.0-1.3) 01/23/17 06:08 Eosinophils # 0.1 K/mcL (0.0-0.6) 01/23/17 06:08 Basophils # 0.0 K/mcL (0.0-0.2) 01/23/17 06:08 Sodium 136 mEq/L (136-145) 01/23/17 06:08 Potassium 3.9 mEq/L (3.5-4.5) 01/23/17 06:08 Chloride 98 mEq/L (98-109) 01/23/17 06:08 Carbon Dioxide 32 mEq/L (19-29) H 01/23/17 06:08 BUN 12 mg/dL (8-26) 01/23/17 06:08 Creatinine 0.87 mg/dL (0.72-1.25) 01/23/17 06:08 Est GFR ( Amer) > 60 (> 60) 01/23/17 06:08 Est GFR (Non-Af Amer) > 60 (> 60) 01/23/17 06:08 BUN/Creatinine Ratio 14 (6-26) 01/23/17 06:08 Glucose 95 mg/dL (70-99) 01/23/17 06:08 POC Glucose 95 (58-89) H 01/23/17 11:25 Calculated Osmolality 282 (280-300) 01/23/17 06:08 Lactic Acid 1.3 mmol/L (0.5-2.2) 01/22/17 21:07 Calcium 9.0 mg/dL (8.6-10.8) 01/23/17 06:08 Magnesium 1.4 mg/dL (1.6-2.6) L 01/23/17 06:08 Total Bilirubin 0.5 mg/dL (0.2-1.2) 01/22/17 21:07 Direct Bilirubin 0.2 mg/dL (0.0-0.5) 01/22/17 21:07 Indirect Bilirubin 0.3 mg/dL (0.0-1.2) 01/22/17 21:07 AST 12 Units/L (5-34) 01/22/17 21:07 ALT 8 Units/L (0-55) 01/22/17 21:07 Alkaline Phosphatase 98 Units/L (38-126) 01/22/17 21:07 B-Natriuretic Peptide 215 pg/mL (0-100) H 01/23/17 06:08 Serum Total Protein 7.5 g/dL (6.0-8.3) 01/22/17 21:07 Albumin 3.4 g/dL (3.5-5.0) L 01/22/17 21:07 Globulin 4.1 g/dL (2.4-3.5) H 01/22/17 21:07 Albumin/Globulin Ratio 0.8 (1.1-2.2) L 01/22/17 21:07 Lipase 26 Units/L (8-78) 01/22/17 21:07 Urine Color Yellow (Yellow) 01/22/17 21:58 Urine Clarity Cloudy (Clear) A 01/22/17 21:58 Urine pH 7.0 pH Units (5.0-8.0) 01/22/17 21:58 Ur Specific [place] 1.022 (1.010-1.025) 01/22/17 21:58 Urine Protein 100 mg/dL (Neg-Trace) H 01/22/17 21:58 Urine Glucose (UA) Normal mg/dL (Normal) 01/22/17 21:58 Urine Ketones Negative mg/dL (Negative) 01/22/17 21:58 Urine Blood Large (Negative) H 01/22/17 21:58 Urine Nitrite Positive (Negative) A 01/22/17 21:58 Urine Bilirubin Negative (Negative) 01/22/17 21:58 Urine Urobilinogen Normal mg/dL (Normal) 01/22/17 21:58 Ur Leukocyte Esterase Large (Negative) H 01/22/17 21:58 Urine Microscopic RBC TNTC per hpf (0-3) H 01/22/17 21:58 Urine Microscopic WBC TNTC per hpf (0-3) H 01/22/17 21:58 Ur Squamous Epith Cells None Seen per lpf (None-Few) 01/22/17 21:58 Urine Bacteria Many per hpf (None-Few) H 01/22/17 21:58 Hyaline Casts None Seen per lpf (None-Few) 01/22/17 21:58 Ur Culture Indicated? YES (NO) A 01/22/17 21:58 Radiographic studies: Abdomen/Pelvis CT 01/22/17 20:54 IMPRESSION: There is a 7 mm stone in the distal left ureter just proximal to the left UVJ with mild obstructing uropathy proximal to this. Stone was present on prior CT exam but the mild obstructing uropathy appears to be new from prior exam. Stable nonobstructing stone to the right kidney. Interval development of bilateral adrenal mass lesions concerning for metastatic disease given the clinical history. Mild degree of nonspecific fat stranding about the left adrenal lesion. Stable moderately sized hiatal hernia. Postsurgical change to visualized right lung base compatible with clinical history of interval partial pneumonectomy with fluid present in the pneumonectomy defect. Stable enlarged prostate. D/ / 01/22/2017 21:42:04 Nadir Gan MD / raffaele I personally reviewed and interpreted patient's most recent imaging studies dated 01/22/17. I discussed the findings with the patient today. Impression/recommendations: Right-sided lung cancer: Pleomorphic histology (mixed changes in the cell neoplasm). Treatment intent to be determined. Patient is currently hospitalized with acute, painful, left-sided ureteric stone. He status post an extraction and left stent placement by Dr. Torres. Imaging for evaluation at initial presentation with abdominal pain raises concern about bilateral adrenal metastases. I had a chance to personally review his scan and adrenal lesions and question is clearly new compared to scans from August and September of this year. I do not see any intervening scans on reviewing his records at [facility]. Etiology of his new bilateral adrenal lesions is unclear but malignancies a high suspicion. Fortunately, he is made an excellent recovery following right lower lobectomy for his lung cancer and is feeling well from an oncologic standpoint with no symptoms the attributable to his underlying malignancy. I informed the patient that while his adrenal lesions remain a concern, I think his current priorities addressing his painful kidney stone and once he is medically optimal, we'll discuss further evaluation including staging imaging studies. He was previously evaluated by Dr. Martinez at [facility] who recommended adjuvant chemotherapy based on pathology from his resection. If he is proven to have distant metastatic disease, we will need to reevaluate his treatment plan. Fortunately, his tumor showed high expression of PDL 1 suggesting likely would' ve excellent response to immunotherapy and depending on his disease status and extent, he may benefit from combination immunotherapy with Ipilimumab and Nivolumab. Once he is medically optimal for discharge, we'll arrange for outpatient follow- up for further discussion/recommendation based on pending status. We'll review his case in our multidisciplinary tumor conference in the interim. We'll follow the patient along side you during this hospitalization but please do not hesitate to call regarding interval hematologic questions as they arise. Thank you for your excellent ongoing care for allowing us to see him while in- house. This report was created using voice recognition software and may contain errors. It was signed but not edited to expedite communication. Corrections will be made in a separate addendum as needed. Past Med Surg Social Fam HX - Past Medical History Medical history: arthritis, atrial fibrillation, cancer, COPD, hyperlipidemia, hypertension, renal disease Psychiatric history: no psych history - Past Surgical History Surgical History: other - Social History Smoking Status: Former smoker Smokeless Tobacco Status: No Alcohol use: none Drug use: none - Family History Father Family Member Ethnicity: Non- Living Status: Medications and Allergies Albuterol Sulfate [Ventolin Hfa] 18 gm IH QID 12/31/16 [History] Alendronate Sodium [Fosamax] 70 mg PO QWEEK 12/31/16 [History] Apixaban [Eliquis] 5 mg PO BID 12/31/16 [History] Digoxin [Lanoxin] 0.125 mg PO DAILY 12/31/16 [History] Ferrous Sulfate [Iron] 325 mg PO BID 12/31/16 [History] Furosemide [Lasix] 20 mg PO DAILY 12/31/16 [History] Ipratropium Neb [Atrovent Neb] 0.5 mg IH Q6HR PRN 12/31/16 [History] Metoprolol [Lopressor] 12.5 mg PO BID 12/31/16 [History] Potassium Chloride [Klor-Con Sprinkle] 10 meq PO DAILY 12/31/16 [History] Tamsulosin HCl [Flomax] 0.4 mg PO DAILY 12/31/16 [History] dilTIAZem HCl [Cardizem] 90 mg PO QID 12/31/16 [History] Acetaminophen [Tylenol] 650 mg PO Q6H PRN 01/22/17 [History] Cholecalciferol (D-3) [Vitamin D] 5,000 unit PO DAILY 01/22/17 [History] Cyanocobalamin (B-12) [Vitamin B12] 1,000 mcg IM Q2W 01/22/17 [History] Docusate Sodium [Dok] 100 mg PO BID PRN 01/22/17 [History] Melatonin [Melatin] 3 mg PO HS 01/22/17 [History] Sennosides [Senna] 17.2 mg PO BID 01/22/17 [History] Cefdinir [Omnicef] 300 mg PO BID 5 Days 01/24/17 [Rx] HYDROcodone/Acet 5/325 mg [[place] 5-325 mg] 1 tab PO Q6H PRN #30 tab 01/24/17 [Rx ] Allergies No Known Allergies Allergy (Verified 08/27/16 10:25) Oncology - Exam - Constitutional Vitals: Temp Pulse Resp BP Pulse Ox 98.6 F 78 19 132/77 95 01/24/17 11:28 01/24/17 11:28 01/24/17 11:28 01/24/17 11:28 01/24/17 11:28 Consult Discharge Plan - Plan Referrals: Danny Torres MD [Partnered Physician] - 02/21/17 2:00 pm Prescriptions: Cefdinir [Omnicef] 300 mg PO BID 5 Days HYDROcodone/Acet 5/325 mg [[place] 5-325 mg] 1 tab PO Q6H PRN #30 tab PRN Reason: Pain
== END 2017-01-24 14:25 | disposition home or self-care (01) | DRG 660 ==
LOC: 3ANU 17:44 → EMEROO 17:44 → 3ANU 01-23 00:51
PROVIDERS: ADMIT Internal Medicine; ATTEND Internal Medicine Endocrinology, Diabetes & Metabolism

== ENCOUNTER 2020-02-21 14:07 | Observation (INO) ==
[2020-02-21] MEDS ORDERED: Ondansetron 4 MG/2 ML VIAL IVP PRN (17:01)
[2020-02-21] MEDS ORDERED: Naloxone 0.4 MG/ML INJ IVP PRN (17:01)
[2020-02-21] MEDS ORDERED: *HR* Metoprolol 5 MG/5 ML VIAL IVP ONE (17:03)
[2020-02-21] MEDS ORDERED: Acetaminophen 325 MG TABLET PO PRN (17:43)
[2020-02-21] MEDS: Ringers Solution, Lactated 1,000 ML IVC SCH (17:48)
[2020-02-21] MEDS: Apixaban 5 MG TABLET PO SCH (17:48)
[2020-02-21] MEDS: Sennosides 8.6 MG TABLET PO SCH (21:30)
[2020-02-21] MEDS: Gabapentin 100 MG CAPSULE PO SCH (21:30)
[2020-02-21] MEDS: Ipratropium/Albuterol Neb 3 ML IH PRN (21:44)
[2020-02-22 01:13] LABS: Basophils % 0.1 %; Eosinophils # 0.1 K/mcL (0.0-0.6); Eosinophils % 0.6 %; Hematocrit 39.7 % (37.5-50.1); Hemoglobin 12.3 g/dL (12.9-16.9); Immature Granulocytes % 0.7 % (0-4); Lymphocytes % 9.2 %; Mean Corpuscular Hemoglobin 29.1 pg (28.0-33.3); Mean Corpuscular Volume 93.9 fL (83.0-100.0); Mean Platelet Volume 9.9 fL (9.4-12.4); Monocytes # 0.6 K/mcL (0.0-1.3); Monocytes % 6.1 %; Neutrophils # 8.8 K/mcL (1.6-8.9); Platelet Count 254 K/mcL (140-400); Red Blood Count 4.23 M/mcL (4.19-5.50); Red Cell Distribution Width 13.6 % (11.5-14.5); Segmented Neutrophils % 83.3 %; White Blood Count 10.6 K/mcL (4.3-11.1)
[2020-02-22 01:34] LABS: Calcium 8.9 mg/dL (8.6-10.3); Potassium 3.8 mEq/L (3.5-5.1)
[2020-02-22] MEDS: Ringers Solution, Lactated 1,000 ML IVC SCH (07:18)
[2020-02-22] MEDS ORDERED: levoFLOXacin 750 MG/150 ML 750 MG/150 ML BAG IVPB SCH (09:00)
[2020-02-22] MEDS: Fenofibrate 54 MG TABLET PO SCH (12:20)
[2020-02-22] MEDS: Gabapentin 100 MG CAPSULE PO SCH ×3 (12:20→20:06)
[2020-02-22] MEDS: Apixaban 5 MG TABLET PO SCH ×2 (12:20→20:06)
[2020-02-22] MEDS: Loratadine 10 MG TABLET PO SCH (12:21)
[2020-02-22] MEDS: *HR* Digoxin 0.125 MG TABLET PO SCH (12:33)
[2020-02-22] MEDS: DilTIAZem CD (24hr) 180 MG CAP.ER.24H PO SCH (12:33)
[2020-02-22] MEDS: Sennosides 8.6 MG TABLET PO SCH ×2 (12:33→20:07)
[2020-02-22] MEDS ORDERED: Folic Acid 1 MG TABLET PO SCH (13:00)
[2020-02-22] MEDS ORDERED: Cholecalciferol (D-3) 1,000 UNIT (25MCG) TABLET PO SCH (13:00)
[2020-02-22] MEDS ORDERED: levoFLOXacin 750 MG TABLET PO ONE (14:45)
[2020-02-22] MEDS ORDERED: amLODIPine 5 MG TABLET PO ONE (17:50)
[2020-02-22] MEDS: Ipratropium/Albuterol Neb 3 ML IH PRN (18:27)
[2020-02-23 05:03] LABS: Basophils % 0.3 %; Eosinophils # 0.3 K/mcL (0.0-0.6); Eosinophils % 3.3 %; Hematocrit 37.4 % (37.5-50.1); Hemoglobin 11.9 g/dL (12.9-16.9); Immature Granulocytes % 0.7 % (0-4); Lymphocytes # 1.2 K/mcL (0.6-4.6); Lymphocytes % 15.4 %; Mean Corpuscular HGB Conc 31.8 g/dL (31.6-35.5); Mean Corpuscular Hemoglobin 29.3 pg (28.0-33.3); Mean Corpuscular Volume 92.1 fL (83.0-100.0); Mean Platelet Volume 9.7 fL (9.4-12.4); Monocytes # 1.1 K/mcL (0.0-1.3); Monocytes % 14.1 %; Platelet Count 235 K/mcL (140-400); Red Blood Count 4.06 M/mcL (4.19-5.50); Red Cell Distribution Width 13.5 % (11.5-14.5); Segmented Neutrophils % 66.2 %; White Blood Count 7.6 K/mcL (4.3-11.1)
[2020-02-23 05:20] LABS: Calcium 9.1 mg/dL (8.6-10.3); Potassium 3.7 mEq/L (3.5-5.1)
[2020-02-23 07:34] VITALS: BP 142/86
[2020-02-23] MEDS: Apixaban 5 MG TABLET PO SCH (07:53)
[2020-02-23] MEDS: Gabapentin 100 MG CAPSULE PO SCH (07:54)
[2020-02-23] MEDS: Sennosides 8.6 MG TABLET PO SCH (07:54)
[2020-02-23] MEDS: *HR* Digoxin 0.125 MG TABLET PO SCH (07:55)
[2020-02-23] MEDS: Fenofibrate 54 MG TABLET PO SCH (07:56)
[2020-02-23] MEDS: DilTIAZem CD (24hr) 180 MG CAP.ER.24H PO SCH (07:57)
[2020-02-23] MEDS: Loratadine 10 MG TABLET PO SCH (07:58)
[2020-02-23] MEDS ORDERED: levoFLOXacin 750 MG TABLET PO ONE (08:00)
[2020-02-23] MEDS ORDERED: levoFLOXacin 750 MG/150 ML 750 MG/150 ML BAG IVPB SCH (09:00)
[2020-02-23] MEDS ORDERED: Lactobacillus 1 EACH CAP.SPRINK PO SCH (09:00)
== END 2020-02-23 10:40 | disposition home or self-care (01) ==
LOC: 3ANU → SUATTDRO 16:16
PROVIDERS: ADMIT Internal Medicine; ATTEND Family Medicine

== ENCOUNTER 2022-02-20 10:40 | Inpatient (IN) ==
[2022-02-20] MEDS ORDERED: Ipratropium/Albuterol Neb 3 ML IH ONE (10:56)
[2022-02-20 11:24] LABS: Basophils % 0.2 %; Eosinophils # 0.2 K/mcL (0.0-0.6); Eosinophils % 1.3 %; Hematocrit 37.6 % (37.5-50.1); Immature Granulocytes % 0.5 % (0-4); Lymphocytes # 5.2 K/mcL (0.6-4.6); Lymphocytes % 34.7 %; Mean Corpuscular HGB Conc 31.9 g/dL (31.6-35.5); Mean Corpuscular Hemoglobin 29.9 pg (28.0-33.3); Mean Corpuscular Volume 93.8 fL (83.0-100.0); Mean Platelet Volume 9.5 fL (9.4-12.4); Monocytes # 1.3 K/mcL (0.0-1.3); Monocytes % 8.4 %; Neutrophils # 8.2 K/mcL (1.6-8.9); Platelet Count 308 K/mcL (140-400); Red Blood Count 4.01 M/mcL (4.19-5.50); Red Cell Distribution Width 13.3 % (11.5-14.5); Segmented Neutrophils % 54.9 %; White Blood Count 14.9 K/mcL (4.3-11.1)
[2022-02-20 11:53] LABS: Troponin I < 0.03 ng/mL (< 0.04)
[2022-02-20 12:21] LABS: Influenza A PCR Negative (Negative); Influenza B PCR Negative (Negative); Resp. Syncytial Virus PCR Negative (Negative); SARS-CoV-2 by PCR (In House) Negative (Negative)
[2022-02-20 12:34] LABS: BUN/Creatinine Ratio 19 (6-26); Blood Urea Nitrogen 28 mg/dL (8-23); Carbon Dioxide 31 mEq/L (23-29); Chloride 100 mEq/L (98-107); Glucose 113 mg/dL (70-105); Osmolality,Calculated 294 (280-300); Potassium 4.9 mEq/L (3.5-5.1); Sodium 139 mEq/L (136-145); eGFR For African Americans 57 (> 60); eGFR For Non-African Americans 47 (> 60)
[2022-02-20] MEDS ORDERED: methylPREDNISolone 125 MG/2 ML VIAL IVP ONE (12:42)
[2022-02-20] MEDS ORDERED: Acetaminophen 325 MG TABLET PO PRN (14:12)
[2022-02-20] MEDS ORDERED: Naloxone 0.4 MG/ML INJ IVP PRN (14:12)
[2022-02-20] MEDS ORDERED: Ondansetron 4 MG/2 ML VIAL IVP PRN (14:12)
[2022-02-20] MEDS ORDERED: Perflutren Lipid Microsphere 1.3 ML in 0.9 % Sodium Chloride 8.7 ML IVP PRN (14:14)
[2022-02-20] MEDS ORDERED: Ipratropium/Albuterol Neb 3 ML IH PRN (14:15)
[2022-02-20] MEDS: Ipratropium/Albuterol Neb 3 ML IH SCH ×2 (15:45→22:28)
[2022-02-20] MEDS: Apixaban 5 MG TABLET PO SCH (20:36)
[2022-02-20 21:53] LABS: Bilirubin,Urine Negative (Negative); Blood,Urine Large (Negative); Clarity,Urine Turbid (Clear); Color,Urine Yellow (Yellow); Glucose,Urine (UA) Normal (Normal); Ketones,Urine Negative (Negative); Leukocyte Esterase,Urine Large (Negative); Mucus,Urine Few per lpf (None-Few); Nitrite,Urine Negative (Negative); Protein,Urine 100 mg/dL (Neg-Trace); RBC,Urine TNTC per hpf (0-3); Specific Gravity,Urine 1.019 (1.010-1.025); Squamous Epithelial Cell,Urine Few per hpf (None-Few); Urobilinogen,Urine Normal (Normal); WBC,Urine TNTC per hpf (0-3)
[2022-02-21] MEDS: Ipratropium/Albuterol Neb 3 ML IH SCH ×4 (03:18→22:04)
[2022-02-21] MEDS: *HR* Digoxin 0.125 MG TABLET PO SCH (08:07)
[2022-02-21] MEDS: DilTIAZem CD (24hr) 180 MG CAP.ER.24H PO SCH (08:07)
[2022-02-21] MEDS: Loratadine 10 MG TABLET PO SCH (08:08)
[2022-02-21] MEDS: Apixaban 5 MG TABLET PO SCH ×2 (08:08→19:45)
[2022-02-21 08:09] LABS: Basophils % 0.1 %; Eosinophils % 0.1 %; Hematocrit 37.3 % (37.5-50.1); Hemoglobin 11.8 g/dL (12.9-16.9); Immature Granulocytes % 0.6 % (0-4); Lymphocytes # 7.8 K/mcL (0.6-4.6); Lymphocytes % 40.5 %; Mean Corpuscular HGB Conc 31.6 g/dL (31.6-35.5); Mean Corpuscular Hemoglobin 29.4 pg (28.0-33.3); Mean Platelet Volume 9.6 fL (9.4-12.4); Monocytes # 0.7 K/mcL (0.0-1.3); Monocytes % 3.6 %; Neutrophils # 10.6 K/mcL (1.6-8.9); Nucleated Red Blood Cells 0.2 /100 WBC (0); Platelet Count 359 K/mcL (140-400); Red Blood Count 4.01 M/mcL (4.19-5.50); Red Cell Distribution Width 13.4 % (11.5-14.5); Segmented Neutrophils % 55.1 %; White Blood Count 19.3 K/mcL (4.3-11.1)
[2022-02-21 08:36] LABS: BUN/Creatinine Ratio 19 (6-26); Blood Urea Nitrogen 28 mg/dL (8-23); Calcium 9.8 mg/dL (8.6-10.3); Carbon Dioxide 29 mEq/L (23-29); Chloride 98 mEq/L (98-107); Glucose 153 mg/dL (70-105); Magnesium 1.9 mg/dL (1.6-2.6); Osmolality,Calculated 297 (280-300); Phosphorous 2.2 mg/dL (2.7-4.5); Potassium 4.3 mEq/L (3.5-5.1); Sodium 139 mEq/L (136-145); eGFR For African Americans 54 (> 60); eGFR For Non-African Americans 45 (> 60)
[2022-02-21] MEDS: MethylPREDNISolone 40 MG/ML VIAL IVP SCH ×2 (08:41→17:23)
[2022-02-21 08:56] LABS: Troponin I < 0.03 ng/mL (< 0.04)
[2022-02-21] MEDS: cefTRIAXone 1,000 MG in 0.9 % Sodium Chloride 10 ML IVP SCH (12:53)
[2022-02-21] MEDS ORDERED: Lactulose Oral Soln 20 GM/30 ML UDC PO PRN (13:24)
[2022-02-21] MEDS: amLODIPine 5 MG TABLET PO SCH (17:23)
[2022-02-21] MEDS: Sennosides 8.6 MG TABLET PO SCH (19:45)
[2022-02-21] MEDS: Gabapentin 100 MG CAPSULE PO PRN (22:02)
[2022-02-22] MEDS: *HR* HYDROcodone/Acet 5/325 mg TABLET PO PRN (00:21)
[2022-02-22] MEDS: Ipratropium/Albuterol Neb 3 ML IH SCH ×4 (04:09→22:40)
[2022-02-22 04:54] LABS: Basophils % 0.1 %; Hematocrit 36.2 % (37.5-50.1); Hemoglobin 11.4 g/dL (12.9-16.9); Immature Granulocytes % 0.8 % (0-4); Lymphocytes # 7.6 K/mcL (0.6-4.6); Lymphocytes % 31.5 %; Mean Corpuscular HGB Conc 31.5 g/dL (31.6-35.5); Mean Corpuscular Hemoglobin 29.6 pg (28.0-33.3); Mean Platelet Volume 10.3 fL (9.4-12.4); Monocytes # 1.4 K/mcL (0.0-1.3); Monocytes % 5.6 %; Neutrophils # 14.9 K/mcL (1.6-8.9); Platelet Count 326 K/mcL (140-400); Red Blood Count 3.85 M/mcL (4.19-5.50); Red Cell Distribution Width 13.8 % (11.5-14.5); White Blood Count 24.1 K/mcL (4.3-11.1)
[2022-02-22 05:10] LABS: Calcium 9.7 mg/dL (8.6-10.3); Potassium 4.9 mEq/L (3.5-5.1)
[2022-02-22] MEDS: MethylPREDNISolone 40 MG/ML VIAL IVP SCH ×2 (05:13→16:28)
[2022-02-22] MEDS ORDERED: Gadolinium Contrast Agent (WT Based) IV PRN (07:58)
[2022-02-22] MEDS: Apixaban 5 MG TABLET PO SCH ×2 (08:14→20:01)
[2022-02-22] MEDS: *HR* Digoxin 0.125 MG TABLET PO SCH (08:14)
[2022-02-22] MEDS: Loratadine 10 MG TABLET PO SCH (08:15)
[2022-02-22] MEDS: Sennosides 8.6 MG TABLET PO SCH ×2 (08:15→20:01)
[2022-02-22] MEDS: Folic Acid 1 MG TABLET PO SCH (08:15)
[2022-02-22] MEDS: DilTIAZem CD (24hr) 180 MG CAP.ER.24H PO SCH (08:15)
[2022-02-22] MEDS ORDERED: Furosemide 20 MG/2 ML VIAL IVP ONE (10:22)
[2022-02-22] MEDS: Azithromycin 250 MG TABLET PO SCH (10:59)
[2022-02-22] MEDS: cefTRIAXone 1,000 MG in 0.9 % Sodium Chloride 10 ML IVP SCH (12:18)
[2022-02-22] MEDS: amLODIPine 5 MG TABLET PO SCH (16:28)
[2022-02-22] MEDS: QUEtiapine Fumarate 25 MG TABLET PO SCH (20:01)
[2022-02-23] MEDS: *HR* HYDROcodone/Acet 5/325 mg TABLET PO PRN (03:01)
[2022-02-23] MEDS: Ipratropium/Albuterol Neb 3 ML IH SCH ×4 (03:54→20:42)
[2022-02-23 05:09] LABS: Basophils % 0.2 %; Hematocrit 35.1 % (37.5-50.1); Immature Granulocytes % 1.1 % (0-4); Lymphocytes % 30.5 %; Mean Corpuscular HGB Conc 31.3 g/dL (31.6-35.5); Mean Corpuscular Hemoglobin 29.1 pg (28.0-33.3); Mean Corpuscular Volume 92.9 fL (83.0-100.0); Mean Platelet Volume 9.7 fL (9.4-12.4); Monocytes # 2.1 K/mcL (0.0-1.3); Monocytes % 8.9 %; Neutrophils # 14.1 K/mcL (1.6-8.9); Platelet Count 365 K/mcL (140-400); Red Blood Count 3.78 M/mcL (4.19-5.50); Red Cell Distribution Width 13.8 % (11.5-14.5); Segmented Neutrophils % 59.3 %; White Blood Count 23.8 K/mcL (4.3-11.1)
[2022-02-23 05:11] LABS: Basophils # 0.1 K/mcL (0.0-0.2); Lymphocytes # 7.3 K/mcL (0.6-4.6)
[2022-02-23 05:27] LABS: Calcium 8.8 mg/dL (8.6-10.3); Potassium 4.3 mEq/L (3.5-5.1)
[2022-02-23] MEDS: Azithromycin 250 MG TABLET PO SCH (08:54)
[2022-02-23] MEDS: Apixaban 5 MG TABLET PO SCH ×2 (08:55→20:11)
[2022-02-23] MEDS: Loratadine 10 MG TABLET PO SCH (08:55)
[2022-02-23] MEDS: *HR* Digoxin 0.125 MG TABLET PO SCH (08:55)
[2022-02-23] MEDS: Sennosides 8.6 MG TABLET PO SCH ×2 (08:55→20:11)
[2022-02-23] MEDS: DilTIAZem CD (24hr) 180 MG CAP.ER.24H PO SCH (08:55)
[2022-02-23] MEDS: predniSONE 20 MG TABLET PO SCH (08:55)
[2022-02-23] MEDS: Folic Acid 1 MG TABLET PO SCH (08:56)
[2022-02-23] MEDS: cefTRIAXone 1,000 MG in 0.9 % Sodium Chloride 10 ML IVP SCH (13:46)
[2022-02-23] MEDS: amLODIPine 5 MG TABLET PO SCH (16:14)
[2022-02-23] MEDS: QUEtiapine Fumarate 25 MG TABLET PO SCH (20:11)
[2022-02-23] MEDS: Gabapentin 100 MG CAPSULE PO PRN (20:57)
[2022-02-23] MEDS ORDERED: Haloperidol Lactate 5 MG/ML VIAL IVP ONE ×2 (22:37→23:18)
[2022-02-23] MEDS: Piperacillin/Tazobactam 3.375 GM in 0.9 % Sodium Chloride Mini Bag 100 ML IVPB SCH (22:51)
[2022-02-23] MEDS ORDERED: *HR* LORazepam 2 MG/ML VIAL IVP ONE (23:42)
[2022-02-24] MEDS: Ipratropium/Albuterol Neb 3 ML IH SCH ×4 (04:06→20:04)
[2022-02-24 05:55] LABS: Hematocrit 33.6 % (37.5-50.1); Hemoglobin 10.8 g/dL (12.9-16.9); Mean Corpuscular HGB Conc 32.1 g/dL (31.6-35.5); Mean Corpuscular Hemoglobin 30.3 pg (28.0-33.3); Mean Corpuscular Volume 94.1 fL (83.0-100.0); Mean Platelet Volume 9.6 fL (9.4-12.4); Platelet Count 353 K/mcL (140-400); Red Blood Count 3.57 M/mcL (4.19-5.50); Red Cell Distribution Width 13.5 % (11.5-14.5); White Blood Count 23.7 K/mcL (4.3-11.1)
[2022-02-24 06:08] LABS: Calcium 8.3 mg/dL (8.6-10.3)
[2022-02-24] MEDS: Piperacillin/Tazobactam 3.375 GM in 0.9 % Sodium Chloride Mini Bag 100 ML IVPB SCH ×3 (07:59→23:19)
[2022-02-24] MEDS: Azithromycin 250 MG TABLET PO SCH (08:00)
[2022-02-24] MEDS: DilTIAZem CD (24hr) 180 MG CAP.ER.24H PO SCH (09:15)
[2022-02-24] MEDS: Loratadine 10 MG TABLET PO SCH (09:15)
[2022-02-24] MEDS: Apixaban 5 MG TABLET PO SCH ×2 (09:15→20:29)
[2022-02-24] MEDS: predniSONE 20 MG TABLET PO SCH (09:15)
[2022-02-24] MEDS: *HR* Digoxin 0.125 MG TABLET PO SCH ×2 (09:15→11:17)
[2022-02-24] MEDS: Folic Acid 1 MG TABLET PO SCH (09:15)
[2022-02-24] MEDS: Sennosides 8.6 MG TABLET PO SCH ×2 (09:15→20:29)
[2022-02-24] MEDS: amLODIPine 5 MG TABLET PO SCH (16:35)
[2022-02-24] MEDS: QUEtiapine Fumarate 25 MG TABLET PO SCH (20:28)
[2022-02-25 02:08] LABS: Hematocrit 35.8 % (37.5-50.1); Hemoglobin 11.4 g/dL (12.9-16.9); Mean Corpuscular HGB Conc 31.8 g/dL (31.6-35.5); Mean Corpuscular Hemoglobin 29.8 pg (28.0-33.3); Mean Corpuscular Volume 93.5 fL (83.0-100.0); Mean Platelet Volume 9.4 fL (9.4-12.4); Platelet Count 359 K/mcL (140-400); Red Blood Count 3.83 M/mcL (4.19-5.50); Red Cell Distribution Width 13.5 % (11.5-14.5); White Blood Count 24.2 K/mcL (4.3-11.1)
[2022-02-25 02:31] LABS: Calcium 8.5 mg/dL (8.6-10.3); Magnesium 2.2 mg/dL (1.6-2.6); Potassium 3.8 mEq/L (3.5-5.1)
[2022-02-25] MEDS: Ipratropium/Albuterol Neb 3 ML IH SCH ×4 (03:48→19:51)
[2022-02-25] MEDS: DilTIAZem CD (24hr) 180 MG CAP.ER.24H PO SCH (10:10)
[2022-02-25] MEDS: Folic Acid 1 MG TABLET PO SCH (10:10)
[2022-02-25] MEDS: Loratadine 10 MG TABLET PO SCH (10:10)
[2022-02-25] MEDS: *HR* Digoxin 0.125 MG TABLET PO SCH (10:11)
[2022-02-25] MEDS: Gabapentin 100 MG CAPSULE PO PRN (10:11)
[2022-02-25] MEDS: Apixaban 5 MG TABLET PO SCH ×2 (10:11→21:39)
[2022-02-25] MEDS: Piperacillin/Tazobactam 3.375 GM in 0.9 % Sodium Chloride Mini Bag 100 ML IVPB SCH ×3 (10:11→23:11)
[2022-02-25] MEDS: Sennosides 8.6 MG TABLET PO SCH ×2 (10:11→21:39)
[2022-02-25] MEDS: amLODIPine 5 MG TABLET PO SCH (16:57)
[2022-02-25] MEDS: QUEtiapine Fumarate 25 MG TABLET PO SCH (21:38)
[2022-02-26] MEDS: Ipratropium/Albuterol Neb 3 ML IH SCH ×2 (03:52→10:26)
[2022-02-26 06:23] VITALS: BP 159/79; PULSE 89; TEMP 97.6; O2SAT 93
[2022-02-26 08:16] LABS: Hematocrit 36.7 % (37.5-50.1); Hemoglobin 11.6 g/dL (12.9-16.9); Mean Corpuscular HGB Conc 31.6 g/dL (31.6-35.5); Mean Corpuscular Hemoglobin 29.4 pg (28.0-33.3); Mean Corpuscular Volume 92.9 fL (83.0-100.0); Mean Platelet Volume 9.2 fL (9.4-12.4); Platelet Count 321 K/mcL (140-400); Red Blood Count 3.95 M/mcL (4.19-5.50); Red Cell Distribution Width 13.7 % (11.5-14.5); White Blood Count 20.1 K/mcL (4.3-11.1)
[2022-02-26 08:27] LABS: Potassium 3.6 mEq/L (3.5-5.1)
[2022-02-26] MEDS: Loratadine 10 MG TABLET PO SCH (08:30)
[2022-02-26] MEDS: Sennosides 8.6 MG TABLET PO SCH (08:30)
[2022-02-26] MEDS: DilTIAZem CD (24hr) 180 MG CAP.ER.24H PO SCH (08:30)
[2022-02-26] MEDS: *HR* Digoxin 0.125 MG TABLET PO SCH (08:30)
[2022-02-26] MEDS: Piperacillin/Tazobactam 3.375 GM in 0.9 % Sodium Chloride Mini Bag 100 ML IVPB SCH (08:31)
[2022-02-26] MEDS: Folic Acid 1 MG TABLET PO SCH (08:31)
[2022-02-26] MEDS: Apixaban 5 MG TABLET PO SCH (08:31)
== END 2022-02-26 13:55 | disposition home health service (06) | DRG 871 ==
LOC: 3BNU 10:40 → EMEROOARM 10:40 → SUATTDRO 14:24 → 3BNU 15:32 → SUATTDRO 02-22 15:51
PROVIDERS: ADMIT General Practice; ATTEND Internal Medicine